=== PATIENT | female | born 1935 | race Caucasian/White ===

== ENCOUNTER 2016-10-14 22:31 | Inpatient (IN) | payer MEDICARE, BC ==
[~2016-10-14] VITALS: Ht 165.1 cm; Wt 89.4 kg
[~2016-10-14 22:31] MED LIST: ACYC800T PO; AMLO5TAB2 PO; AMOX-355 PO; ASP81TEC PO; ATRV10T PO; AZIT250T PO; AZTH250C PO; BNZ10T PO; CEFD300C3 PO; CEFU500T34 PO; CODE-54 PO; DLT180CCR PO; ESTR0.9T PO; FLC100T PO; FLEC100T PO; FLEC50TA2 PO; FURO20TA4 PO; FURO40TA4 PO; GLIM4TAB PO; HCT25T PO; HYDR-3812 PO; HYDR115S2 PO; INSU100V5 SQ; Insulin Human Lispro SC; KCL10CCR PO; LEVO125T PO; LISI40TA PO; LOSA100T7 PO; METO50TA7 PO; POTA10CA43 PO; WARF2TAB PO
--- OUTSIDE RECORDS SUMMARY | 2016-10-14 22:41 | XMS REPORT | Continuity of Care Document ---
Author Author [facility] Organization [facility] Address Unknown Phone Unavailable Care Team Providers Care Skiver Machine Name Role Phone Dpth, Azucena PCP [phone] Source Comments Some departments are not documenting in the electronic medical record. If you do not see the information that you expected, contact Release of Information in the Health Information Management department at [phone] for further assistance in locating additional records.[facility] Active Allergies and Adverse Reactions Allergen Noted Date Severity Reactions Comments Sulfa (Sulfonamide 12/13/2009 HIVES Antibiotics) Current Medications Prescription Sig. Disp. Refills Start End Date Status Date Levothyroxine 125 mcg Cap Take 125 mcg by mouth Active Daily. estrogens, conjugated Take 0.625 mg by mouth Active (PREMARIN) 0.625 mg PO daily. tablet hydrochlorothiazide Take 1 Tab by mouth 90 Cap 3 01/02/20 Active (HYDRODIURIL) 25 mg daily. 13 tablet flecainide (TAMBOCOR) 50 1 Tab twice daily. 180 Tab 3 01/02/20 Active mg tablet 13 amLODIPine (NORVASC) 5 mg Take 1 Tab by mouth 90 Tab 3 01/02/20 Active tablet daily. 13 metoprolol XL (TOPROL XL) Take 1 Tab by mouth as 135 Tab 3 01/08/20 Active 100 mg tablet directed. Take one tablet 13 by mouth every morning and 0.5 tablet by mouth each evening. warfarin (COUMADIN) 2 mg Take 1-2 Tabs by mouth 180 Tab 3 01/08/20 Active tablet daily. Or as directed. 13 furosemide (LASIX) 20 mg TAKE ONE-HALF (1/2) 45 Tab 1 10/29/19 Active tablet TABLET DAILY 14 atorvastatin (LIPITOR) 80 TAKE 1 TABLET DAILY 90 Tab 0 12/30/19 Active mg tablet 14 KLOR-CON 10 10 mEq tablet TAKE 1 TABLET DAILY 90 Tab 0 12/30/19 Active 14 Active Problems Problem Noted Date WOODWARD (dyspnea on exertion) 04/06/2011 Overview: Exertional fatigue and fatigue in general: We will check a TSH. We will obtain better control of her blood pressure. She will initiate an exercise program where she is exercises daily on a treadmill, and we discussed that as well. She will contact us if her blood pressure is not well controlled. I do not suspect that she is having recurrent intermittent paroxysmal atrial fibrillation causing her to be fatigued all the time. Of note, she was very active a year ago prior to her episode of AFib, bowling, mowing her own lawn, doing other significant activities with no symptoms, and now she has difficulty sometimes doing her housework. 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 If with better control of her blood pressure, the other changes described below, and exercise, she does not have significant improvement in a month (at which point I have asked her to follow up with our nurse practitioner, Ivanna Mathews), then Ivanna will have her undergo an exercise stress echo with Doppler and pre and post exercise PA pressure assessments. If they are significantly abnormal, then she will seek further pulmonary evaluation. However, she also may have some diastolic dysfunction and just controlling her blood pressure better and, if necessary, we may consider switching her hydrochlorothiazide to Lasix in the future, she may have improvement. She will keep in phone contact. It is possible that her metoprolol is causing her fatigue, although I think less likely. If the above evaluation and treatment do not improve her symptoms or yield a diagnosis or etiology of her symptoms, then we may consider tapering down her metoprolol and see if it improves her overall clinical status. --followed by water manager --AFIB stable Pulmonary hypertension (HCC) 01/01/2011 Overview: Elevated PAP on initial presentation-Pulmonary hypertension: 54/39mmHg on initial presentation a. Pulmonary angiogram 02-17. Question of RLL AV malformation or mass. b. CT angiogram to evaluate the above-pending? Echo 2009: Estimated Peak Systolic PA Pressure=22 mmHg + CVP. 01/13/2013 Exercise echo: Estimated Peak Systolic PA Pressure=46 mmHg HTN (hypertension), benign 05/25/2010 Overview: Cough on Lotensin, switched to Cozaar. Last Assessment & Plan: Her BP remains uncontrolled. We discussed a low sodium diet. I changed for HCTZ to Lasix 10mg bid. She will continue to monitor her blood pressures at home and increase her exercise as tolerated. I would like to see her when she returns for her stress text to reassess her HTN management. Fatigue 05/25/2010 Overview: 05/02/2010: will check TSH. Patient instructed to begin an exercise program. Last Assessment & Plan: Fatigue has improved with exercising. She did not have TSH drawn and this has been ordered today along with a BMP to follow up after changing NADEEN to ARB. An exercise echo examination has been ordered to assess her pre and post exercise PA pressures. CAD (coronary artery disease) 05/02/2010 Overview: Non-obstructive CAD-when presented with Chest pain w elevated tropinin - a. 02/17 Cardiac cath revealed mild disease of 20% LAD lesion. b. No clear WMA's noted. Normal LV Function b. EF 60% by cath 02/17. No clear WMA's noted.when presented with Chest pain w elevated tropinin - a. 02/17 Cardiac cath revealed mild disease of 20% LAD lesion. b. No clear WMA's noted 01/13/13 Exercise Echo: EF improves with stress LV function becomes nearly hyperdynamic LV volume decreases with stress. No regional wall motion abnormalities post exercise. Exercise echocardiogram negative for ischemia but submaximal HR with very poor exercise capacity limits sensitivity of exam. Last Assessment & Plan: Today she is denying symptoms that would indicate progression of her disease. Specifically she denies chest pain or shortness of breath with exertion. A-fib (HCC) 12/20/2009 Overview: Paroxsymal Afib--PAFIB-Sxic, currently persistent-06/21/09. --1st Dx'd 01-18--was aSxic, i.e. pt. unaware of AFIB--duration was unclear. --Cardioversion on 05-20 after 3 weeks Txic anticoag.--briefly successful, then with recurrent AFIB --Echo 02-17: EF 55-60%. Mild-mod MR & TR with probable elevated R heart pressures. LA size 4.7cm. --02/17Unable to perform JULIANA due to problems passing probe with conscious sedation. --RVR, Toprol increased 06-17-09 to 100mg am, 50mg in pm. --Unable to pass JULIANA probe with conscious sedation--pt. reportedly combative --EP Consultation 06/21/09--Txic INRs and AA Tx-if refractory then LAAA --RVR, Toprol increased 06-21-09 to 100mg BID--pt. did not do --12/19 JULIANA guided CVRT and AA Tx initiation with Flecainide and 200J-->NSR ? "Mild Stroke"-per families report--head CT without contrast 02/17-negative for acute CVA --Reportedly new O.D. lid lag, etc.--improved but not resolved. 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 BMI 33 Hypertension GERD. Prior Hyperthyroidism, treated with radiation Tx-on replacement Tx now Hyperlipidemia--on Lipitor Anticoagulation management GERD PRISCILA L ast Assessment & Plan: Assessment of heart rate as regular rhythm and normal rate. Social History Tobacco Use Types Packs/Day Years Used Date Never Smoker Alcohol Use Drinks/Week oz/Week Comments No Last Filed Vital Signs Vital Sign Reading Time Taken Blood Pressure 138/72 01/13/2013 10:45 AM CDT Pulse 60 01/01/2013 12:44 PM CDT Temperature 36.4 C (97.5 F) 12/13/2009 3:45 PM CDT Respiratory Rate - - Height 1.664 m (5' 5.5") 01/13/2013 10:45 AM CDT Weight 89.359 kg (197 lb) 01/13/2013 10:45 AM CDT Body Mass Index 32.27 01/13/2013 10:45 AM CDT Oxygen Saturation 96% 12/13/2009 3:45 PM CDT Plan of Care Health Maintenance Due Date Last Done Comments Physical (Comprehensive) 1944 Exam Pertussis Vaccine 1948 Tetanus Vaccine 1954 Breast Cancer Screening 1977 Shingles Vaccine 1997 Osteoporosis Screening 2002 Prevnar/Pneumovax (#1) 2002 Influenza Vaccine 04/12/2015 Results from Last 3 Months Not on file
--- NOTE | 2016-10-14 23:23 | ED General ---
General Chief Complaint: Respiratory Problems Stated Complaint: SOA WHIZZING Nursing Triage Note: Pt c/o SOA around 1700 tonight. Pt reports having cough x3 days Nursing Sepsis Screen: No Definite Risk Source of Information: Patient Exam Limitations: No Limitations History of Present Illness Time Seen by Provider: 23:13 Initial Comments Here with report of shortness of air tonight that started around 5 p.m. but she has been having cough, congestion and not feeling well for the last 3 days. She has been exposed to influenza but was on prophylactic Tamiflu. Was noted to be hypoxic arrival and responded well to oxygen. Also is markedly hypertensive. Patient presents with a fever. Denies nausea or vomiting but did have some diarrhea. States that she has been drinking okay but eating less today at least. States that she feels weak. Denies chest pain otherwise. Timing/Duration: 2-3 Days, Getting Worse Severity: Moderate Associated Systoms: No Chest Pain, Cough Fever/ChillsNo Nausea/Vomiting, Shortness of Air Weakness Allergies and Home Medications Allergies Coded Allergies: No Known Drug Allergies (Unverified , 06/05/15) Home Medications Aspirin 81 Mg Tabec #30 81 MG PO DAILY Prescribed by: CHEY POLK on 01/11/14 1010 Atorvastatin Calcium 10 Mg Tablet 80 MG PO DAILY (Reported) Azithromycin 250 Mg Tablet #4 250 MG PO DAILY Prescribed by: FRANCIS ALLEN on 07/16/16150 Cefdinir 300 Mg Capsule #20 300 MG PO BID Prescribed by: FRANCIS ALLEN on 07/16/16150 Estrogens,Conjugated 0.9 Mg Tablet 0.9 MG PO DAILY (Reported) Flecainide Acetate 100 Mg Tablet #180 (Reported) Furosemide 40 Mg Tablet #90 (Reported) Glimepiride 4 Mg Tablet #90 (Reported) Hydrocodone/Chlorphen P-Stirex 480 Ml Cristine.er.12h #120 5 ML PO Q12H PRN PRN cough Prescribed by: FRANCIS ALLEN on 07/16/16150 Insulin Detemir 1 Unit/0.01 Ml Soln #1 20 UNIT SQ DAILY Prescribed by: DIMITRI GAYTAN on 01/02/14 1038 Levothyroxine Sodium 125 Mcg Tablet 125 MCG PO DAILY (Reported) Lisinopril 40 Mg Tablet #90 (Reported) Losartan Potassium 100 Mg Tablet #30 100 MG PO DAILY (Reported) Metoprolol Succinate 50 Mg Tab #30 50 MG PO DAILY Prescribed by: CHEY POLK on 01/11/14 1010 Potassium Chloride 10 Meq Capsule.er #90 (Reported) Warfarin Sodium 2 Mg Tab #30 2 MG PO [id number]@18 Prescribed by: DIMITRI GAYTAN on 01/02/14 1038 Warfarin Sodium 2 Mg Tab #30 3 MG PO [id number]@18 Prescribed by: DIMITRI GAYTAN on 01/02/14 1038 Constitutional: see HPI chills fever malaise weakness EENTM: nose congestion see HPINo throat pain Respiratory: cough short of breath wheezing Cardiovascular: no symptoms reported Gastrointestinal: no symptoms reported diarrheaNo nausea, No vomiting Genitourinary: no symptoms reported Musculoskeletal: no symptoms reported Skin: no symptoms reported Psychiatric/Neurological: No Symptoms Reported All Other Systems Reviewed Negative Unless Noted: Yes Past Otrjszz-Gmckyz-Jdaeio Hx Patient Social History Alcohol Use: Denies Use Recreational Drug Use: No Smoking Status: Never a Smoker Recent Foreign Travel: No Contact w/Someone Who Travel: No Recent Infectious Disease Expo: No Recent Hopitalizations: No Seasonal Allergies Seasonal Allergies: No Surgeries HX Surgeries: Yes Surgeries: Appendectomy, Eye Surgery, Hysterectomy, Pacemaker, Tonsillectomy Respiratory Hx Respiratory Disorders: No Cardiovascular Hx Cardiac Disorders: Yes Cardiac Disorders: High Cholesterol, Hypertension Neurological Hx 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) Neurological Disorders: Stroke Reproductive System Hx Reproductive Disorders: No Sexually Transmitted Disease: No HIV/AIDS: No Female Reproductive Disorders: Endometriosis Genitourinary Hx Genitourinary Disorders: Yes (Frequency, Ugency) Gastrointestinal Hx Gastrointestinal Disorders: Yes Gastrointestinal Disorders: Gastroesophageal Reflux Musculoskeletal Hx Musculoskeletal Disorders: Yes Musculoskeletal Disorders: Osteoporosis, Arthritis Endocrine Hx Endocrine Disorders: Yes Endocrine Disorders: Hypothyroidsim, Diabetes, Non-Insulin dep HEENT HX ENT Disorders: Yes (bilateral cataract) HEENT Disorders: Cataract Loss of Vision: Denies Hearing Impairment: Deaf Cancer Hx Cancer: No Psychosocial Hx Psychiatric Problems: No Integumentary HX Skin/Integumentary Disorder: No Blood Transfusions Hx Blood Disorders: No Reviewed Nursing Assessment Reviewed/Agree w Nursing PMH: Yes Family Medical History Significant Family History: No Pertinent Family Hx Physical Exam-Suspected Sepsis Physical Exam Vital Signs Vital Sign - Last 12Hours 10/14/16 10/14/16 22:45 22:50 Temp 99.5 Pulse 65 Resp 18 Pulse Ox 87 O2 Delivery Room Air O2 Flow Rate 2 Capillary Refill : Less Than 3 Seconds General Appearance: No Apparent Distress WD/WN HEENT: PERRL/EOMI Pharynx Normal Neck: Non Tender Supple Respiratory: No Accessory Muscle Use Crackles (bilateral bases) Decreased Breath Sounds (right sided) Cardiovascular: Regular Rate, Rhythm No Murmur Gastrointestinal: Non Tender Soft Back: Normal Inspection No CVA Tenderness No Vertebral Tenderness Extremity: Non Tender No Calf Tenderness Neurologic/Psychiatric: Alert Oriented x3 Skin: normal color warm/dry Progress/Results/Core Measures Suspected Sepsis Recent Fever Within 48 Hours: No Infection Criteria Present: Suspected New Infection New/Unexplained Altered Menta: No Sepsis Screen: No Definite Risk Sepsis Diagnosis: SIRS Temperature:99.5 Pulse: 65 Respiratory Rate: 18 Laboratory Tests 10/14/16 23:32: White Blood Count 11.8H Blood Pressure / Mean: Laboratory Tests 10/14/16 23:32: Creatinine 0.77, INR Comment 3.3H, Platelet Count 210, Total Bilirubin 0.5 Results/Orders Lab Results Laboratory Tests Test 10/14/16 00:52 10/14/16 23:32 Range/Units Urine Bacteria MODERATE H /HPF Urine Bilirubin NEGATIVE NEGATIVE Urine Casts NONE /LPF Urine Clarity CLEAR Urine Color YELLOW Urine Crystals NONE /LPF Urine Culture Indicated YES Urine Glucose (UA) 4+ H NEGATIVE Urine Ketones 4+ H NEGATIVE Urine Leukocyte Esterase 2+ H NEGATIVE Urine Mucus NEGATIVE /LPF Urine Nitrite POSITIVE H NEGATIVE Urine Protein 2+ H NEGATIVE Urine RBC RARE /HPF Urine RBC (Auto) 3+ H NEGATIVE Urine Specific [place] 1.025 H 1.016-1.022 Urine Squamous Epithelial Cells RARE /HPF Urine Urobilinogen NORMAL NORMAL MG/DL Urine WBC 2-5 /HPF Urine pH 5 5-9 Activated Partial Thromboplast Time 47 H 24-35 SEC Alanine Aminotransferase (ALT/SGPT) 20 0-55 U/L Albumin 3.6 3.2-4.5 G/DL Alkaline Phosphatase 91 40-136 U/L Anion Gap 13 5-14 MMOL/L Anisocytosis SLIGHT Aspartate Amino Transf (AST/SGOT) 41 H 5-34 U/L BUN/Creatinine Ratio 18 Band Neutrophils 2 % Basophils # (Auto) 0.0 0.0-0.1 10^3/uL Basophils % (Manual) 0 % Basophils (%) (Auto) 0 0-10 % Blood Urea Nitrogen 14 7-18 MG/DL Calcium Level 8.8 8.5-10.1 MG/DL Carbon Dioxide Level 20 L 21-32 MMOL/L Chloride Level 101 98-107 MMOL/L Creatinine 0.77 0.60-1.30 MG/DL Eosinophils # (Auto) 0.6 H 0.0-0.3 10^3/uL Eosinophils % (Manual) 3 % Eosinophils (%) (Auto) 5 0-10 % Estimat Glomerular Filtration Rate > 60 Glucose Level 325 H 70-105 MG/DL Hematocrit 44 35-52 % Hemoglobin 14.6 11.5-16.0 G/DL INR Comment 3.3 H 0.8-1.4 Lactic Acid Level 1.26 0.50-2.00 MMOL/L Lymphocytes # (Auto) 0.6 L 1.0-4.0 X 10^3 Lymphocytes % (Manual) 1 % Lymphocytes (%) (Auto) 5 L 12-44 % Mean Corpuscular Hemoglobin 29 25-34 PG Mean Corpuscular Hemoglobin Concent 33 32-36 G/DL Mean Corpuscular Volume 88 80-99 FL Mean Platelet Volume 11.3 H 7.4-10.4 FL Monocytes # (Auto) 0.5 0.0-1.0 X 10^3 Monocytes % (Manual) 1 % Monocytes (%) (Auto) 4 0-12 % Neutrophils # (Auto) 10.1 H 1.8-7.8 X 10^3 Neutrophils % (Manual) 91 % Neutrophils (%) (Auto) 86 H 42-75 % Platelet Count 210 130-400 10^3/uL Potassium Level 4.3 3.6-5.0 MMOL/L Prothrombin Time 33.1 H 12.2-14.7 SEC Reactive Lymphocytes 2 % Red Blood Count 4.99 4.35-5.85 10^6/uL Red Cell Distribution Width 15.0 H 10.0-14.5 % Sodium Level 134 L 135-145 MMOL/L Total Bilirubin 0.5 0.1-1.0 MG/DL Total Protein 6.7 6.4-8.2 G/DL White Blood Count 11.8 H 4.3-11.0 10^3/uL Micro Results Microbiology 10/14/16 Influenza Types A,B Antigen (BREE) - Final, Complete My Orders Orders-ASHISH CORDERO MD O2 (10/14/16 22:49) Cbc With Automated Diff (10/14/16 23:17) Comprehensive Metabolic Panel (10/14/16:17) Lactic Acid Analyzer (10/14/16 23:17) Blood Culture (10/14/16 23:17) Sputum Culture (10/14/16 23:17) Ua Culture If Indicated (10/14/16:17) Protime With Inr (10/14/16:) Partial Thromboplastin Time (10/14/16 23:17) Chest 1 View, Ap/Pa Only (10/14/16 23:17) O2 (10/14/16:17) Saline Lock/Iv-Start (10/14/16:17) Saline Lock/Iv-Start (10/14/16:17) Vital Signs Adult Sepsis Patie Q1HR (10/14/16 23:17) Remove Rings In Anticipation O (10/14/16:17) Influenza A And B Antigens (10/14/16 23:17) Clonidine Tablet (Catapres Tablet) (10/14/16 23:30) Albuterol/Ipra Inhalation Soln (Duoneb I (10/14/16 23:30) Svn Sm Volume Nebulizer Rt-Rfs (10/14/16 23:23) Manual Differential (10/14/16 23:32) Hydralazine Injection (Apresoline Inject (10/15/16 00:30) Urine Culture (10/14/16 00:52) Medications Given in ED Current Medications Medications Dose Ordered Sig/Antonio Route Start Time Stop Time Status Last Admin Dose Admin Albuterol/ Ipratropium 3 ml ONCE ONCE INH 10/14/16 23:30 10/14/16 23:31 DC 10/14/16 23:33 3 ML Clonidine HCl 0.2 mg ONCE ONCE PO 10/14/16 23:30 10/14/16 23:31 DC 10/14/16 23:42 0.2 MG Vital Signs/I&O Vital Sign - Last 12Hours 10/14/16 10/14/16 10/14/16 22:45 22:50 23:33 Temp 99.5 Pulse 65 Resp 18 B/P Pulse Ox 87 87 94 O2 Delivery Room Air Nasal Cannula O2 Flow Rate 2 2 Capillary Refill : Less Than 3 Seconds Progress Note : Progress Note Seen and evaluated. IV, labs, UA, blood cultures and lactic acid, influenza screen, DuoNeb treatment and influenza screen ordered. Patient is hypertensive. Clonidine 0.2 mg by mouth ordered. Monitor patient. 0103: Discussed case with Dr. Ceballos. Patient's blood pressure is improved to 142/ 75. She does have right basilar pneumonia and still is requiring 2 L of oxygen with O2 sats improved to 95-96 percent after breathing treatment. Rocephin 1 g IV ordered. Patient to be admitted for treatment of pneumonia with hypoxia. Dr. Ceballos accepts patient for admission, inpatient status on-call for Dr. Johnson who is patient's primary care provider. Findings and concerns as discussed with patient and family who agree with plan. Diagnostic Imaging Diagonstic Imaging: Xray Plain Films/CT/US/NM/MRI: chest Comments Right basilar pneumonia Departure Communication Time/Spoke to Admitting Phy: 01:03 Impression Impression: Primary Impression: Right lower lobe pneumonia Qualified Code: J18.1 - Lobar pneumonia, unspecified organism Additional Impression: Hypoxia Disposition: ADMITTED INPATIENT Condition: Stable Decision to Admit Reason: Admit from ER (General) Decision to Admit/Date: Oct 15, 2016 Time/Decision to Admit Time: 01:03 Departure-Patient Inst. Referrals: GEORGIE JOHNSON DO (PCP/Family) Primary Care Physician ASHISH CORDERO MD Oct 14, 2016 23:23
[2016-10-14] MEDS ORDERED: cloNIDine 0.2 MG (CATAPRES) TAB PO ONE (23:30)
[2016-10-14] MEDS ORDERED: RT-ALBUTEROL/IPRATROPIUM 3 ML (DUONEB) VIAL INH ONE (23:30)
[2016-10-14 23:39] LABS: BASOPHILS % (AUTO) 0 % (0-10); EOSINOPHILS # (AUTO) 0.6 10^3/uL (0.0-0.3); EOSINOPHILS % (AUTO) 5 % (0-10); LYMPHOCYTES # (AUTO) 0.6 X 10^3 (1.0-4.0); LYMPHOCYTES % (AUTO) 5 % (12-44); MEAN CORPUSCULAR HEMOGLOBIN 29 PG (25-34); MEAN CORPUSCULAR HGB CONC 33 G/DL (32-36); MEAN CORPUSCULAR VOLUME 88 FL (80-99); MEAN PLATELET VOLUME 11.3 FL (7.4-10.4); MONOCYTES # (AUTO) 0.5 X 10^3 (0.0-1.0); MONOCYTES % (AUTO) 4 % (0-12); NEUTROPHILS # (AUTO) 10.1 X 10^3 (1.8-7.8); NEUTROPHILS % (AUTO) 86 % (42-75); PLATELET COUNT 210 10^3/uL (130-400); RED BLOOD COUNT 4.99 10^6/uL (4.35-5.85); WHITE BLOOD COUNT 11.8 10^3/uL (4.3-11.0)
[2016-10-14 23:49] LABS: INR 3.3 (0.8-1.4); PROTHROMBIN TIME PATIENT 33.1 SEC (12.2-14.7)
[2016-10-15] VITALS (7 sets, daily range): BP systolic 148–210; BP diastolic 65–90
[2016-10-15 00:02] LABS: ANISOCYTOSIS SLIGHT; BAND NEUTROPHILS 2 %; BASOPHILS % (MANUAL) 0 %; EOSINOPHILS % (MANUAL) 3 %; LYMPHOCYTES % (MANUAL) 1 %; NEUTROPHILS % (MANUAL) 91 %; REACTIVE LYMPHOCYTES 2 %
[2016-10-15 00:06] LABS: ALANINE AMINOTRANSFERASE 20 U/L (0-55); ALBUMIN 3.6 G/DL (3.2-4.5); ANION GAP 13 MMOL/L (5-14); ASPARTATE AMINO TRANSFERASE 41 U/L (5-34); BILIRUBIN,TOTAL 0.5 MG/DL (0.1-1.0); BLOOD UREA NITROGEN 14 MG/DL (7-18); BUN/CREATININE RATIO 18; CALCIUM 8.8 MG/DL (8.5-10.1); CARBON DIOXIDE 20 MMOL/L (21-32); CHLORIDE 101 MMOL/L (98-107); CREATININE SERUM 0.77 MG/DL (0.60-1.30); GFR ESTIMATED > 60; GLUCOSE 325 MG/DL (70-105); POTASSIUM 4.3 MMOL/L (3.6-5.0); SODIUM 134 MMOL/L (135-145); TOTAL PROTEIN 6.7 G/DL (6.4-8.2)
[2016-10-15] MEDS ORDERED: hydrALAZINE (APESOLINE) 20 MG/ML VIAL IV ONE (00:30)
[2016-10-15 00:59] LABS: BILIRUBIN,URINE NEGATIVE (NEGATIVE); KETONES,URINE 4+ (NEGATIVE); LEUKOCYTE ESTERASE ,URINE 2+ (NEGATIVE); NITRITE,URINE POSITIVE (NEGATIVE); PH,URINE 5 (5-9); PROTEIN,URINE 2+ (NEGATIVE); UROBILINOGEN,URINE NORMAL (NORMAL)
[2016-10-15 01:08] LABS: SQUAMOUS EPITHELIAL CELL,UR RARE /HPF
[2016-10-15] MEDS ORDERED: cefTRIAXone INJECTION 1,000 MG in NS (IVPB) 50 ML IV ONE (01:15)
[2016-10-15] MEDS ORDERED: NS IV 1000 ML 1,000 ML ONE (02:08)
[2016-10-15] MEDS ORDERED: SODIUM CHLORIDE (ADD-VANTAGE) 250 ML ONE (02:10)
[2016-10-15] MEDS ORDERED: AZITHROMYCIN IV ADD-VANTAGE 500 MG IV ONE (02:10)
[2016-10-15] MEDS: NS IV 1000 ML 1,000 ML IV SCH (02:10)
[2016-10-15] MEDS ORDERED: CATHETER FLUSH 10 ML SYR IV PRN (04:30)
[2016-10-15] MEDS: ACETAMINOPHEN 500 MG TAB (TYLENOL) PO PRN (04:33)
[2016-10-15] MEDS: CATHETER FLUSH 10 ML SYR IV SCH ×3 (06:00→21:09)
[2016-10-15] MEDS ORDERED: inSUlin (REGULAR) HUMAN 1 UNIT/0.01 ML (CHARGE PER UNIT) SC SCH (06:00)
[2016-10-15] MEDS: inSUlin (REGULAR) HUMAN 1 UNIT/0.01 ML (CHARGE PER UNIT) SC SCH ×4 (06:08→21:09)
[2016-10-15 06:46] LABS: BASOPHILS % (AUTO) 0 % (0-10); EOSINOPHILS # (AUTO) 0.3 10^3/uL (0.0-0.3); EOSINOPHILS % (AUTO) 4 % (0-10); LYMPHOCYTES # (AUTO) 0.6 X 10^3 (1.0-4.0); LYMPHOCYTES % (AUTO) 7 % (12-44); MEAN CORPUSCULAR HEMOGLOBIN 29 PG (25-34); MEAN CORPUSCULAR HGB CONC 32 G/DL (32-36); MEAN CORPUSCULAR VOLUME 89 FL (80-99); MEAN PLATELET VOLUME 11.5 FL (7.4-10.4); MONOCYTES # (AUTO) 0.4 X 10^3 (0.0-1.0); MONOCYTES % (AUTO) 5 % (0-12); NEUTROPHILS % (AUTO) 84 % (42-75); PLATELET COUNT 202 10^3/uL (130-400); RED BLOOD COUNT 4.63 10^6/uL (4.35-5.85); RED CELL DISTRIBUTION WIDTH 14.9 % (10.0-14.5); WHITE BLOOD COUNT 8.3 10^3/uL (4.3-11.0)
[2016-10-15 07:04] LABS: ALANINE AMINOTRANSFERASE 18 U/L (0-55); ALBUMIN 3.3 G/DL (3.2-4.5); ANION GAP 12 MMOL/L (5-14); ASPARTATE AMINO TRANSFERASE 34 U/L (5-34); BILIRUBIN,TOTAL 0.4 MG/DL (0.1-1.0); BLOOD UREA NITROGEN 12 MG/DL (7-18); BUN/CREATININE RATIO 17; CALCIUM 8.4 MG/DL (8.5-10.1); CARBON DIOXIDE 21 MMOL/L (21-32); CHLORIDE 101 MMOL/L (98-107); CREATININE SERUM 0.72 MG/DL (0.60-1.30); GFR ESTIMATED > 60; GLUCOSE 303 MG/DL (70-105); POTASSIUM 4.1 MMOL/L (3.6-5.0); SODIUM 134 MMOL/L (135-145); TOTAL PROTEIN 6.1 G/DL (6.4-8.2)
[2016-10-15] MEDS: RT-ALBUTEROL SULF 2.5 MG/3 ML PRE-MIX VIAL INH PRN ×3 (08:19→17:38)
--- NOTE | 2016-10-15 08:20 | Diagnostic Imaging Report ---
INDICATION: Cough, congestion. FINDINGS: Heart size is upper limits slightly increased. Vascular congestion has increased. There is some perihilar edema. No effusion. Calcified nodule in the right lower lobe stable chronic and benign. IMPRESSION: Increased heart size, vascular congestion and probable mild perihilar edema. Dictated by: Dictated on workstation # [id number]
[2016-10-15] MEDS ORDERED: lisINopril 20 MG (ZESTRIL) TAB PO SCH (09:00)
[2016-10-15] MEDS ORDERED: meTOprolol SUCCINATE 100 MG (TOPROL XL) TAB PO SCH (09:00)
[2016-10-15] MEDS ORDERED: FLECAINIDE 100 MG (TAMBOCOR) TAB PO SCH (09:00)
[2016-10-15] MEDS ORDERED: ATOR80TA76 PO (09:37)
[2016-10-15] MEDS ORDERED: NF-MET200T PO (09:37)
[2016-10-15] MEDS ORDERED: MAGN400T6 PO (09:37)
[2016-10-15] MEDS ORDERED: WARF-47 PO ×2 (09:37)
[2016-10-15] MEDS ORDERED: ESTR0.62 PO (09:37)
[2016-10-15] MEDS ORDERED: LEVO175T5 PO (09:37)
[2016-10-15] MEDS ORDERED: INSU100I29 SQ (09:37)
[2016-10-15] MEDS ORDERED: ASPI-983 PO (09:37)
[2016-10-15] MEDS: AZITHROMYCIN 250 MG TAB (ZITHROMAX) PO SCH (09:39)
[2016-10-15] MEDS ORDERED: warFARin 3 MG (COUMADIN) TAB PO SCH (17:00)
[2016-10-15] MEDS ORDERED: amLODIPine 5 MG (NORVASC) TAB PO NR (17:15)
[2016-10-15] MEDS ORDERED: cloNIDine 0.1 MG (CATAPRES) TAB PO NR (17:15)
[2016-10-15] MEDS ORDERED: FUROSEMIDE 40 MG/4 ML INJ (LASIX) ONE (17:42)
[2016-10-15] MEDS ORDERED: methylPREDNISolone 125 MG (Solu-MEDROL) VIAL ONE (17:42)
[2016-10-15] MEDS ORDERED: FUROSEMIDE 40 MG/4 ML INJ (LASIX) IVP NR (17:45)
[2016-10-15] MEDS ORDERED: methylPREDNISolone 40 MG/ML (Solu-MEDROL) VIAL IV NR (17:45)
[2016-10-15] MEDS: RT-ALBUTEROL SULF 2.5 MG/3 ML PRE-MIX VIAL INH SCH ×2 (18:00→22:50)
--- NOTE | 2016-10-15 19:25 | History & Physicial ---
History of Present Illness History of Present Illness Reason for visit/HPI This is a 81 year old female who presented to the emergency room with a 3 day history of cough and congestion. She became more short of air so she presented to the emergency room. She was found to be hypoxic with an oxygen saturation of 87%. She was also found to be hypertensive. Her CXR showed a pulmonary vascular congestion and possible right lower lobe pneumonia. It was decided to admit her for antibiotics, oxygen, nebulizer treatments and further evaluation. Date of Admission Oct 15, 2016 at 1:27 am I consulted on this patient on 10/15/16 19:19 Attending Physician Zhanna Johnson DO Admitting Physician Zhanna Johnson DO Consult Allergies and Home Medications Allergies Coded Allergies: No Known Drug Allergies (Unverified , 06/05/15) Home Medications Aspirin 81 Mg Tablet.dr 81 MG PO DAILY (Reported) Atorvastatin Calcium 80 Mg Tablet 80 MG PO HS (Reported) Estrogens, Conjugated 0.625 Mg Tablet 0.625 MG PO DAILY (Reported) Flecainide Acetate 100 Mg Tablet 100 MG PO BID (Reported) Furosemide 40 Mg Tablet 40 MG PO DAILY (Reported) Glimepiride 4 Mg Tablet 4 MG PO DAILY (Reported) Insulin Detemir 100 Unit/1 Ml Insuln.pen 35 UNITS SQ BID (Reported) Levothyroxine Sodium 175 Mcg Tablet 175 MCG PO DAILY (Reported) Lisinopril 40 Mg Tablet 40 MG PO DAILY (Reported) Magnesium Oxide 400 Mg Tablet 400 MG PO DAILY (Reported) Metoprolol Succinate 200 Mg Tab 200 MG PO DAILY (Reported) Potassium Chloride 10 Meq Capsule.er 10 MEQ PO DAILY (Reported) Warfarin Sodium 2 Mg Tablet 2 MG PO TuThSa (Reported) Warfarin Sodium 2 Mg Tablet 3 MG PO SuMoWeFr (Reported) TAKES 1 & 1/2 OF A (2 MG) TABLET Past Lyhcvkh-Hizviw-Xvubga Hx Patient Social History Alcohol Use: Denies Use Recreational Drug Use: No Smoking Status: Never a Smoker Physical Abuse Screen: No Sexual Abuse: No Recent Foreign Travel: No Contact w/other who traveled: No Recent Hopitalizations: No Recent Infectious Disease Expo: No Immunizations Up To Date Date of Influenza Vaccine: May 17, 2016 Seasonal Allergies Seasonal Allergies: No Surgeries HX Surgeries: Yes Surgeries: Appendectomy, Eye Surgery, Hysterectomy, Pacemaker, Tonsillectomy Respiratory Hx Respiratory Disorders: No Cardiovascular Hx Cardiovascular Disorders: Yes Cardiac Disorders: High Cholesterol, Hypertension Neurological Hx 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) Neurological Disorders: Stroke Reproductive System Hx Reproductive Disorders: No Sexually Transmitted Disease: No HIV/AIDS: No Female Reproductive Disorders: Endometriosis Genitourinary Hx Genitourinary Disorders: Yes (Frequency, Ugency) Gastrointestinal Hx Gastrointestinal Disorders: Yes Gastrointestinal Disorders: Gastroesophageal Reflux Musculoskeletal Hx Musculoskeletal Disorders: Yes Musculoskeletal Disorders: Osteoporosis, Arthritis Endocrine Hx Endocrine Disorders: Yes Endocrine Disorders: Hypothyroidsim, Diabetes, Non-Insulin dep HEENT HX ENT Disorders: Yes (bilateral cataract) HEENT Disorders: Cataract Loss of Vision: Denies Hearing Impairment: Deaf Cancer Hx Cancer: No Psychosocial Hx Psychiatric Problems: No Integumentary HX Skin/Integumentary Disorder: No Blood Transfusions Hx Blood Disorders: No Reviewed Nursing Assessment Reviewed/Agree w Nursing PMH: Yes Family Medical History Significant Family History: No Pertinent Family Hx Family Hx: Constitutional: weakness EENTM: No blurred vision, No dental problems, No double vision, No ear discharge, No ear pain, No epistaxis, No eye pain, No hearing loss, No hoarseness, No mouth pain, No mouth swelling, No no symptoms reported, No nose congestion, No nose pain, No other, No see HPI, No tearing, No throat pain, No throat swelling, No vision loss Respiratory: cough short of breath Cardiovascular: No no symptoms reported, No see HPI, No chest pain, No edema, No Hx of Intervention, No palpitations, No syncope, No vascular heart diseas, No other Gastrointestinal: No RUQ, No LUQ, No RLQ, No LLQ, No no symptoms reported, No see HPI, No abdominal pain, No constipation, No diarrhea, No dysphagia, No hematemesis, No heartburn, No jaundice, No loss of appetite, No melena, No nausea, No vomiting, No other Genitourinary: No no symptoms reported, No see HPI, No decreased output, No discharge, No dysuria, No frequency, No hematuria, No hesitancy, No incontinence , No nocturia, No pain, No other Musculoskeletal: No no symptoms reported, No see HPI, No back pain, No gout, No joint pain, No joint swelling, No muscle pain, No muscle stiffness, No muscle cramps, No muscle twitching, No muscle weakness, No neck pain, No other Skin: No no symptoms reported, No see HPI, No change in color, No change in hair/nails, No dryness, No hx of skin cancer, No lesions, No lumps, No pruritus , No rash, No other Psychiatric/Neurological: Weakness Physical Exam Vital Signs Vital Sign - Last 12Hours 10/14/16 10/14/16 22:45 22:50 Temp 99.5 Pulse 65 Resp 28 Pulse Ox 87 O2 Delivery Room Air O2 Flow Rate 2 Capillary Refill : Less Than 3 Seconds General Appearance: No Apparent Distress HEENT: Normal ENT Inspection Neck: Supple Respiratory: Crackles Decreased Breath Sounds Cardiovascular: Regular Rate, Rhythm Systolic Murmur Gallop/S4 Gastrointestinal: Normal Bowel Sounds Non Tender Soft Rectal: Deferred Back: No CVA Tenderness Extremity: Non Tender No Calf Tenderness No Pedal Edema Neurologic/Psychiatric: Alert Oriented x3 Skin: Normal Color Warm/Dry Lymphatic: No Adenopathy Comments Laboratory Tests 10/14/16 23:32: Activated Partial Thromboplast Time 47H, Alanine Aminotransferase (ALT/SGPT) 20 , Albumin 3.6, Alkaline Phosphatase 91, Anion Gap 13, Anisocytosis SLIGHT, Aspartate Amino Transf (AST/SGOT) 41H, BUN/Creatinine Ratio 18, Band Neutrophils 2, Basophils # (Auto) 0.0, Basophils % (Manual) 0, Basophils (%) ( Auto) 0, Blood Urea Nitrogen 14, Calcium Level 8.8, Carbon Dioxide Level 20L, Chloride Level 101, Creatinine 0.77, Eosinophils # (Auto) 0.6H, Eosinophils % ( Manual) 3, Eosinophils (%) (Auto) 5, Estimat Glomerular Filtration Rate > 60, Glucose Level 325H, Hematocrit 44, Hemoglobin 14.6, INR Comment 3.3H, Lactic Acid Level 1.26, Lymphocytes # (Auto) 0.6L, Lymphocytes % (Manual) 1, Lymphocytes (%) (Auto) 5L, Mean Corpuscular Hemoglobin 29, Mean Corpuscular Hemoglobin Concent 33, Mean Corpuscular Volume 88, Mean Platelet Volume 11.3H, Monocytes # (Auto) 0.5, Monocytes % (Manual) 1, Monocytes (%) (Auto) 4, Neutrophils # (Auto) 10.1H, Neutrophils % (Manual) 91, Neutrophils (%) (Auto) 86H, Platelet Count 210, Potassium Level 4.3, Prothrombin Time 33.1H, Reactive Lymphocytes 2, Red Blood Count 4.99, Red Cell Distribution Width 15.0H, Sodium Level 134L, Total Bilirubin 0.5, Total Protein 6.7, White Blood Count 11.8H 10/15/16 05:26: Glucometer 276H 10/15/16 06:08: Alanine Aminotransferase (ALT/SGPT) 18, Albumin 3.3, Alkaline Phosphatase 80, Anion Gap 12, Aspartate Amino Transf (AST/SGOT) 34, BUN/Creatinine Ratio 17, Basophils # (Auto) 0.0, Basophils (%) (Auto) 0, Blood Urea Nitrogen 12, Calcium Level 8.4L, Carbon Dioxide Level 21, Chloride Level 101, Creatinine 0.72, Eosinophils # (Auto) 0.3, Eosinophils (%) (Auto) 4, Estimat Glomerular Filtration Rate > 60, Glucose Level 303H, Hematocrit 41, Hemoglobin 13.3, Lymphocytes # (Auto) 0.6L, Lymphocytes (%) (Auto) 7L, Mean Corpuscular Hemoglobin 29, Mean Corpuscular Hemoglobin Concent 32, Mean Corpuscular Volume 89, Mean Platelet Volume 11.5H, Monocytes # (Auto) 0.4, Monocytes (%) (Auto) 5, Neutrophils # (Auto) 7.0, Neutrophils (%) (Auto) 84H, Platelet Count 202, Potassium Level 4.1, Red Blood Count 4.63, Red Cell Distribution Width 14.9H, Sodium Level 134L, Total Bilirubin 0.4, Total Protein 6.1L, White Blood Count 8.3 10/15/16 10:15: Glucometer 286H 10/15/16 14:47: Glucometer 221H Microbiology 10/14/16 Blood Culture - Preliminary, Resulted No growth 10/14/16 Influenza Types A,B Antigen (BREE) - Final, Complete 10/14/16 Urine Culture - Preliminary, Resulted Escherichia Coli Assessment/Plan Assessment and Plan 1. Acute Hypoxia--admit on oxygen 2. Pulmonary Vascular Congestion--start lasix and check BNP, 2-D ECHO 3. Possible RLL infiltrate vs nodule--on abx but will check CT of chest 4. Hypertensive Urgency--restart home meds and monitor 5. Diabetes mellitus--resume home insulin dose plus SSI Clinical Quality Measures DVT/VTE Risk/Contraindication: Risk Factor Score Per Nursin RFS Level Per Nursing on Admit: 4+=Very High ZHANNA JOHNSON DO Oct 15, 2016 7:24 pm
[2016-10-15] MEDS: cefTRIAXone 1 GM/NS 50 ML IVPB IV SCH ×2 (21:08)
[2016-10-15] MEDS: inSUlin DETERMIR 1 UNIT/0.01 ML (LEVEMIR) CHARGE PER UNIT SQ SCH (21:09)
[2016-10-15] MEDS: ATORVASTATIN 80 MG (LIPITOR) TABLET PO SCH (21:09)
[2016-10-15] MEDS: FLECAINIDE 100 MG (TAMBOCOR) TAB PO SCH (21:09)
[2016-10-16 00:42] VITALS: BP 138/63
[2016-10-16] MEDS: RT-ALBUTEROL SULF 2.5 MG/3 ML PRE-MIX VIAL INH SCH ×6 (02:23→22:08)
[2016-10-16 04:00] VITALS: BP 103/52
[2016-10-16] MEDS: NS IV 1000 ML 1,000 ML IV SCH (04:30)
[2016-10-16 06:14] LABS: BASOPHILS % (AUTO) 0 % (0-10); EOSINOPHILS % (AUTO) 0 % (0-10); LYMPHOCYTES # (AUTO) 0.6 X 10^3 (1.0-4.0); LYMPHOCYTES % (AUTO) 9 % (12-44); MEAN CORPUSCULAR HEMOGLOBIN 29 PG (25-34); MEAN CORPUSCULAR HGB CONC 33 G/DL (32-36); MEAN CORPUSCULAR VOLUME 88 FL (80-99); MEAN PLATELET VOLUME 11.2 FL (7.4-10.4); MONOCYTES # (AUTO) 0.3 X 10^3 (0.0-1.0); MONOCYTES % (AUTO) 5 % (0-12); NEUTROPHILS # (AUTO) 5.9 X 10^3 (1.8-7.8); NEUTROPHILS % (AUTO) 86 % (42-75); PLATELET COUNT 211 10^3/uL (130-400); RED BLOOD COUNT 4.62 10^6/uL (4.35-5.85); WHITE BLOOD COUNT 6.8 10^3/uL (4.3-11.0)
[2016-10-16] MEDS: CATHETER FLUSH 10 ML SYR IV SCH ×3 (06:16→21:14)
[2016-10-16] MEDS: MAGNESIUM OXIDE (MAG-OX)400 MG TAB PO SCH (06:16)
[2016-10-16] MEDS: inSUlin (REGULAR) HUMAN 1 UNIT/0.01 ML (CHARGE PER UNIT) SC SCH ×4 (06:16→21:14)
[2016-10-16] MEDS: LEVOTHYROXINE 75 MCG (LEVOTHROID) TABLET PO SCH (06:17)
[2016-10-16] MEDS: LEVOTHYROXINE 100 MCG (LEVOTHROID) TAB PO SCH (06:17)
[2016-10-16] MEDS: FUROSEMIDE 40 MG (LASIX) TAB PO SCH ×2 (06:17→18:43)
[2016-10-16] MEDS: KCL 20 MEQ TAB (K-DUR) PO SCH (06:17)
[2016-10-16 06:51] LABS: ALBUMIN 3.3 G/DL (3.2-4.5); BILIRUBIN,TOTAL 0.4 MG/DL (0.1-1.0); CALCIUM 8.7 MG/DL (8.5-10.1); CREATININE SERUM 0.98 MG/DL (0.60-1.30); POTASSIUM 3.9 MMOL/L (3.6-5.0); TOTAL PROTEIN 6.4 G/DL (6.4-8.2)
[2016-10-16 08:00] VITALS: BP 136/76
[2016-10-16] MEDS ORDERED: FUROSEMIDE 40 MG (LASIX) TAB PO SCH (09:00)
[2016-10-16] MEDS: AZITHROMYCIN 250 MG TAB (ZITHROMAX) PO SCH (09:39)
[2016-10-16] MEDS: meTOprolol SUCCINATE 100 MG (TOPROL XL) TAB PO SCH (09:39)
[2016-10-16] MEDS: ESTROGENS CONJ 0.625 MG (PREMARIN) TAB PO SCH (09:39)
[2016-10-16] MEDS: FLECAINIDE 100 MG (TAMBOCOR) TAB PO SCH ×2 (09:39→21:13)
[2016-10-16] MEDS: ASPIRIN E.C. 81 MG (ECOTRIN) TAB PO SCH (09:39)
[2016-10-16] MEDS: lisINopril 20 MG (ZESTRIL) TAB PO SCH (09:39)
[2016-10-16] MEDS: inSUlin DETERMIR 1 UNIT/0.01 ML (LEVEMIR) CHARGE PER UNIT SQ SCH ×2 (09:40→21:14)
[2016-10-16 12:00] VITALS: BP 110/54
--- NOTE | 2016-10-16 13:54 | Diagnostic Imaging Report ---
PROCEDURE: CT chest without contrast. TECHNIQUE: Multiple contiguous axial images were obtained through the chest without the use of intravenous contrast. INDICATION: Pulmonary nodule. CORRELATION STUDY: Chest radiograph of 10/14/2016. FINDINGS: A left-sided multichamber pacemaker is present. The heart size is at the upper limits of normal. No significant pericardial fluid collection. There are calcified right subcarinal and hilar lymph nodes present. There are mildly prominent mediastinal lymph nodes present on unenhanced imaging. The largest measures approximately 13 x 10 mm. The thoracic aortic contour is unremarkable. The lung soriano do demonstrate minimal groundglass type opacities, disproportionate and greater involving the right lung field throughout all lobes. No tracey lobar consolidation. There is a densely calcified granuloma about the right lower lobe. There is a small 3 mm noncalcified granuloma in the right lower lobe just adjacent to the fissure plane. No significant pleural effusions. The visualized portions of the upper abdomen demonstrate multiple irregular marginally lobulated low densities along the peripheral margins of the liver. The largest involves the lateral aspect of the right lobe of the liver but also involves the left lobe. Granulomas are noted within the spleen. IMPRESSION: 1. No currently concerning nodule within either lung. There is an incidental calcified granuloma of the right lower lobe with additional calcified right hilar and subcarinal lymph nodes owing to prior granulomatous disease. 2. Groundglass opacities of the particularly right lung may reflect nonspecific edema or an inflammatory/infectious process. 3. There are peripheral geographic low-density lesions within the liver. The findings are nonspecific. This is perhaps an atypical type of vascular perfusion. Additionally, correlation with either ultrasound imaging or post contrast enhanced CT imaging of the abdomen would be recommended. Dictated by: Dictated on workstation # [id number]
[2016-10-16 15:24] LABS: INR 3.1 (0.8-1.4)
[2016-10-16 15:30] VITALS: BP 160/72
[2016-10-16] MEDS ORDERED: warFARin 2 MG (COUMADIN) TAB PO SCH (17:00)
[2016-10-16] MEDS ORDERED: KCL 10 MEQ TAB (MICRO K) PO SCH (17:20)
[2016-10-16] MEDS ORDERED: RT-ALBUTEROL SULF 2.5 MG/3 ML PRE-MIX VIAL INH PRN (18:00)
[2016-10-16 19:00] VITALS: BP 131/58
[2016-10-16] MEDS: ATORVASTATIN 80 MG (LIPITOR) TABLET PO SCH (21:13)
[2016-10-16] MEDS: cefTRIAXone 1 GM/NS 50 ML IVPB IV SCH ×2 (21:14)
--- NOTE | 2016-10-16 21:41 | Progress Note (SOAP) ---
Subjective Subjective/Events-last exam Fwup hypoxia, pneumonia, pulmonary vascular congestion, HTN, diabetes mellitus. Feeling better but had episode of shortness of air last night that responded to IV lasix and IV steroids. Objective Exam Vital Signs Date Time Temp Pulse Resp B/P Pulse Ox O2 Delivery O2 Flow Rate FiO2 10/16/16 19:00 97.6 66 22 131/58 92 Nasal Cannula 2.50 10/16/16 18:38 93 2.00 10/16/16 15:47 98.0 10/16/16 15:30 97.1 64 18 160/72 95 Nasal Cannula 2.50 10/16/16 14:08 93 2.00 10/16/16 12:00 98.0 63 20 110/54 96 Nasal Cannula 2.50 10/16/16 09:58 96 2.00 10/16/16 08:00 97.4 66 20 136/76 95 Nasal Cannula 2.50 10/16/16 08:00 Nasal Cannula 4.00 10/16/16 06:10 94 2.00 10/16/16 04:00 96.8 60 20 103/52 95 Nasal Cannula 2.50 10/16/16 02:23 97 2.00 10/16/16 00:42 97.2 64 20 138/63 95 Nasal Cannula 3.00 10/15/16 22:50 2.00 I & O 10/16/16 07:00 Intake Total 1790 ml Output Total 1925 ml Balance -135 ml Capillary Refill : Less Than 3 Seconds General Appearance: No Apparent Distress Neck: Supple Respiratory: Crackles Decreased Breath Sounds Cardiovascular: Regular Rate, Rhythm Systolic Murmur Extremity: Non Tender No Calf Tenderness No Pedal Edema Neurologic/Psychiatric: Alert Oriented x3 Results Lab Laboratory Tests 10/16/16 05:48: Alanine Aminotransferase (ALT/SGPT) 18, Albumin 3.3, Alkaline Phosphatase 70, Anion Gap 14, Aspartate Amino Transf (AST/SGOT) 30, BUN/Creatinine Ratio 16, Basophils # (Auto) 0.0, Basophils (%) (Auto) 0, Blood Urea Nitrogen 16, Calcium Level 8.7, Carbon Dioxide Level 22, Chloride Level 97L, Creatinine 0.98, Eosinophils # (Auto) 0.0, Eosinophils (%) (Auto) 0, Estimat Glomerular Filtration Rate 55, Glucose Level 421*H, Hematocrit 41, Hemoglobin 13.4, Lymphocytes # (Auto) 0.6L, Lymphocytes (%) (Auto) 9L, Mean Corpuscular Hemoglobin 29, Mean Corpuscular Hemoglobin Concent 33, Mean Corpuscular Volume 88, Mean Platelet Volume 11.2H, Monocytes # (Auto) 0.3, Monocytes (%) (Auto) 5, Neutrophils # (Auto) 5.9, Neutrophils (%) (Auto) 86H, Platelet Count 211, Potassium Level 3.9, Red Blood Count 4.62, Red Cell Distribution Width 15.0H, Sodium Level 133L, Total Bilirubin 0.4, Total Protein 6.4, White Blood Count 6.8 10/16/16 06:09: Glucometer 386H 10/16/16 10:16: Glucometer 309H 10/16/16 13:55: B-Type Natriuretic Peptide 187.0H 10/16/16 15:10: INR Comment 3.1H, Prothrombin Time 32.0H 10/16/16 20:29: Glucometer 168H Microbiology 10/14/16 Blood Culture - Preliminary, Resulted No growth 10/14/16 Influenza Types A,B Antigen (BREE) - Final, Complete 10/14/16 Urine Culture - Final, Complete Escherichia Coli Assessment/Plan Assessment/Plan Assess & Plan/Chief Complaint 1. Acute Hypoxia--Continue oxygen 2. Acute Pneumonia--continue IV abx and check CT scan of chest 3. Acute Pulmonary Vascular Congestion--po lasix dose increased, check 2-D ECHO 4. Hypertension--improving 5. Diabetes mellitus--back on levemir with SSI Clinical Quality Measures DVT/VTE Risk/Contraindication: Risk Factor Score Per Nursin RFS Level Per Nursing on Admit: 4+=Very High GEORGIE GONZALES DO Oct 16, 2016 9:41 pm
[2016-10-17] VITALS: BP 127/62
[2016-10-17] MEDS: RT-ALBUTEROL SULF 2.5 MG/3 ML PRE-MIX VIAL INH SCH ×6 (02:15→22:39)
[2016-10-17] MEDS: NS IV 1000 ML 1,000 ML IV SCH (02:35)
[2016-10-17] MEDS: ACETAMINOPHEN 500 MG TAB (TYLENOL) PO PRN (02:37)
[2016-10-17] MEDS: CATHETER FLUSH 10 ML SYR IV SCH ×3 (05:36→20:36)
[2016-10-17] MEDS: FUROSEMIDE 40 MG (LASIX) TAB PO SCH ×2 (05:36→18:07)
[2016-10-17] MEDS: MAGNESIUM OXIDE (MAG-OX)400 MG TAB PO SCH (05:36)
[2016-10-17] MEDS: LEVOTHYROXINE 75 MCG (LEVOTHROID) TABLET PO SCH (05:36)
[2016-10-17] MEDS: KCL 20 MEQ TAB (K-DUR) PO SCH (05:36)
[2016-10-17] MEDS: LEVOTHYROXINE 100 MCG (LEVOTHROID) TAB PO SCH (05:36)
[2016-10-17] MEDS: inSUlin (REGULAR) HUMAN 1 UNIT/0.01 ML (CHARGE PER UNIT) SC SCH ×4 (05:37→20:36)
[2016-10-17 06:32] LABS: INR 2.7 (0.8-1.4); PROTHROMBIN TIME PATIENT 28.6 SEC (12.2-14.7)
[2016-10-17 08:00] VITALS: BP 121/60
--- NOTE | 2016-10-17 08:32 | ECHOCARDIOGRAPHY REPORT ---
PROCEDURE PHYSICIAN: MERY TALAVERA DATE OF PROCEDURE: 10/16/2016 TWO DIMENSIONAL ECHOCARDIOGRAM REPORT PRIMARY PHYSICIAN: Dr. Johnson OTHER PHYSICIAN: REFERRING PHYSICIAN: ORDERING PHYSICIAN: Dr. Johnson INDICATION FOR THE PROCEDURE: Right sided pneumonia. MEASUREMENTS DERIVED VALUES LV DIAMETER (LAX) NORMALS NORMALS Diastolic 4.4 (3.6-5.2) Eject. Fract. (60%+/-6%) Systolic (2.3-3.9) Diastolic Vol. % Shortening (0.22-0.42) Systolic Vol. Aortic Root 3.1 IVS THICKNESS Diastolic 1.1 (0.6-1.1) LVPW THICKNESS Diastolic 1.1 (0.6-1.1) LA DIAMETER Systolic 4.1 (2.1-3.7) DESCRIPTION: Two-dimensional echocardiography shows normal global left ventricular systolic function with normal regional wall motion. Aortic, mitral and tricuspid valve leaflets show good leaflet excursion. There is no significant pericardial effusion. There is mild mitral annular calcification. There is mild aortic valve sclerosis. Doppler imaging shows trivial to mild mitral and tricuspid regurgitation. There is no Doppler evidence of significant valvular stenosis. Pulmonary artery systolic pressure is estimated to be approximately 35 mmHg. Good subcostal views are not available. Study is not adequate for evaluation for intracardiac shunt. CONCLUSIONS: 1. Normal global left ventricular systolic function with an ejection fraction of approximately 60%. 2. Mild aortic valve sclerosis and mitral annular calcification without evidence of significant valvular stenosis. Trivial to mild mitral and tricuspid regurgitation. 3. Pulmonary artery systolic pressure is estimated to be approximately 35 mmHg. Job ID: [id number] Dictated Date: 10/16/2016 18:46:18 Silo Man Date: 10/17/2016 08:28:19 / jono
[2016-10-17] MEDS: inSUlin DETERMIR 1 UNIT/0.01 ML (LEVEMIR) CHARGE PER UNIT SQ SCH ×2 (08:34→20:36)
[2016-10-17] MEDS: FLECAINIDE 100 MG (TAMBOCOR) TAB PO SCH ×2 (08:34→20:35)
[2016-10-17] MEDS: ASPIRIN E.C. 81 MG (ECOTRIN) TAB PO SCH (08:34)
[2016-10-17] MEDS: ESTROGENS CONJ 0.625 MG (PREMARIN) TAB PO SCH (08:34)
[2016-10-17] MEDS: meTOprolol SUCCINATE 100 MG (TOPROL XL) TAB PO SCH (08:34)
[2016-10-17] MEDS: AZITHROMYCIN 250 MG TAB (ZITHROMAX) PO SCH (08:35)
[2016-10-17] MEDS: lisINopril 20 MG (ZESTRIL) TAB PO SCH (08:35)
--- NOTE | 2016-10-17 09:32 | Physician Query ---
PQ-Intro New Diagnosis Admission/Discharge Admission Date: Oct 15, 2016 at 01:27 Discharge Date: The medical record reflects the following clinical scenario: History/Risk Factors: Pneumonia/pulmonary vascular congestion Clinical Findings: Hypoxia with resp 28, pulse 65,pulse ox 87%,tachypnea. Treatment: IV Solu Medrol, O2 flow 2 liter increased to 4 and DuoNeb treatments. Question: What condition best reflects the above clinical scenario? Please document below. 1. Acute respiratory failure. 2. Acute hypoxia only. 3. Other, with explanation of the clinical findings. 4. Clinically undetermined, no explanation for the clinical findings. PHYSICIAN RESPONSE What condition reflects above: Other, explanation/clinical finding Explanation of clincal finding Acute Respiratory Distress with Acute Hypoxia Please remember a lack of response to the above will prompt a phone page by [facility]/ coding staff. In responding to this query, please exercise your independent professional judgment. The purpose of this communication is to more accurately reflect the complexity of your patients condition. The fact that a question is asked does not imply that any particular answer is desired or expected. Thank you for your timely response to this clarification. Requestors name: Tatiana Wagner [facility] Phone # ext [phone] or [phone]. THIS PHYSICIAN QUERY FORM IS A PERMANENT PART OF THE MEDICAL RECORD TATIANA WAGNER Oct 17, 2016 09:32 GEORGIE GONZALES DO Oct 19, 2016 11:05
[2016-10-17 16:25] VITALS: BP 167/91
[2016-10-17] MEDS: warFARin 2 MG (COUMADIN) TAB PO SCH (18:07)
--- NOTE | 2016-10-17 19:16 | Progress Note (SOAP) ---
Subjective Subjective/Events-last exam Fwup hypoxia, pneumonia, pulmonary vascular congestion, HTN, diabetes mellitus. Feels good. Wanted to go home this AM but then had oxygen saturation drop this afternoon to 81%. Objective Exam Vital Signs Date Time Temp Pulse Resp B/P Pulse Ox O2 Delivery O2 Flow Rate FiO2 10/17/16 18:43 95 2.00 10/17/16 16:25 96.5 60 21 167/91 96 Nasal Cannula 2.50 10/17/16 15:23 94 2.00 10/17/16 11:20 88 1.00 10/17/16 08:04 Nasal Cannula 4.00 10/17/16 08:00 97.0 61 16 121/60 92 Nasal Cannula 2.50 10/17/16 06:54 91 1.00 10/17/16 02:15 94 1.00 10/17/16 00:00 98.6 65 20 127/62 94 Nasal Cannula 2.50 10/16/16 22:08 94 2.00 10/16/16 21:00 Nasal Cannula 4.00 I & O 10/17/16 07:00 Intake Total 1800 ml Output Total 1050 ml Balance 750 ml Capillary Refill : Less Than 3 Seconds General Appearance: No Apparent Distress Neck: Supple Respiratory: Crackles Decreased Breath Sounds Rhonci Cardiovascular: Regular Rate, Rhythm Gastrointestinal: normal bowel sounds non tender soft Extremity: Non Tender No Calf Tenderness No Pedal Edema Neurologic/Psychiatric: Alert Oriented x3 Skin: Normal Color Warm/Dry Results Lab Laboratory Tests 10/16/16 20:29: Glucometer 168H 10/17/16 05:36: Glucometer 83 10/17/16 05:52: INR Comment 2.7H, Prothrombin Time 28.6H 10/17/16 09:50: Glucometer 209H 10/17/16 16:27: Glucometer 134H Microbiology 10/14/16 Blood Culture - Preliminary, Resulted No growth 10/14/16 Influenza Types A,B Antigen (BREE) - Final, Complete 10/14/16 Urine Culture - Final, Complete Escherichia Coli Assessment/Plan Assessment/Plan Assess & Plan/Chief Complaint 1. Acute Hypoxia--Continue oxygen 2. Acute Pneumonia--continue IV abx, add solumedrol 3. Acute Pulmonary Vascular Congestion--po lasix dose increased, 2-D ECHO results pending 4. Hypertension--improving 5. Diabetes mellitus--back on levemir with SSI Clinical Quality Measures DVT/VTE Risk/Contraindication: Risk Factor Score Per Nursin RFS Level Per Nursing on Admit: 4+=Very High GEORGIE GONZALES DO Oct 17, 2016 19:16
[2016-10-17] MEDS: methylPREDNISolone 40 MG/ML (Solu-MEDROL) VIAL IV SCH (19:33)
[2016-10-17] MEDS: cefTRIAXone 1 GM/NS 50 ML IVPB IV SCH ×2 (20:35)
[2016-10-17] MEDS: ATORVASTATIN 80 MG (LIPITOR) TABLET PO SCH (20:35)
[2016-10-18] VITALS: BP 170/79
[2016-10-18] MEDS: methylPREDNISolone 40 MG/ML (Solu-MEDROL) VIAL IV SCH ×4 (00:46→17:15)
[2016-10-18] MEDS: RT-ALBUTEROL SULF 2.5 MG/3 ML PRE-MIX VIAL INH SCH ×6 (02:16→22:16)
[2016-10-18] MEDS: FUROSEMIDE 40 MG (LASIX) TAB PO SCH ×2 (05:35→17:15)
[2016-10-18] MEDS: MAGNESIUM OXIDE (MAG-OX)400 MG TAB PO SCH (05:35)
[2016-10-18] MEDS: LEVOTHYROXINE 100 MCG (LEVOTHROID) TAB PO SCH (05:35)
[2016-10-18] MEDS: LEVOTHYROXINE 75 MCG (LEVOTHROID) TABLET PO SCH (05:35)
[2016-10-18] MEDS: CATHETER FLUSH 10 ML SYR IV SCH ×2 (05:35→15:28)
[2016-10-18] MEDS: KCL 20 MEQ TAB (K-DUR) PO SCH (05:35)
[2016-10-18] MEDS: inSUlin (REGULAR) HUMAN 1 UNIT/0.01 ML (CHARGE PER UNIT) SC SCH ×4 (05:36→20:42)
[2016-10-18 07:50] LABS: INR 2.2 (0.8-1.4); PROTHROMBIN TIME PATIENT 24.3 SEC (12.2-14.7)
[2016-10-18 08:00] VITALS: BP 163/69
[2016-10-18] MEDS: AZITHROMYCIN 250 MG TAB (ZITHROMAX) PO SCH (08:43)
[2016-10-18] MEDS: meTOprolol SUCCINATE 100 MG (TOPROL XL) TAB PO SCH (08:43)
[2016-10-18] MEDS: ESTROGENS CONJ 0.625 MG (PREMARIN) TAB PO SCH (08:43)
[2016-10-18] MEDS: ASPIRIN E.C. 81 MG (ECOTRIN) TAB PO SCH (08:43)
[2016-10-18] MEDS: FLECAINIDE 100 MG (TAMBOCOR) TAB PO SCH ×2 (08:44→20:41)
[2016-10-18] MEDS: lisINopril 20 MG (ZESTRIL) TAB PO SCH (08:44)
[2016-10-18] MEDS: inSUlin DETERMIR 1 UNIT/0.01 ML (LEVEMIR) CHARGE PER UNIT SQ SCH ×2 (08:44→20:42)
[2016-10-18 15:25] VITALS: BP 144/65
--- NOTE | 2016-10-18 17:13 | Progress Note (SOAP) ---
Subjective Subjective/Events-last exam Fwup hypoxia, pneumonia, pulmonary vascular congestion, HTN, diabetes mellitus. Had episode with desaturation yesterday so not as eager to go home today. Objective Exam Vital Signs Date Time Temp Pulse Resp B/P Pulse Ox O2 Delivery O2 Flow Rate FiO2 10/18/16 15:25 96.9 60 20 144/65 95 Nasal Cannula 2.00 2.00 10/18/16 15:18 95 2.00 10/18/16 10:46 94 2.00 10/18/16 08:44 Nasal Cannula 2.00 10/18/16 08:00 97.6 63 16 163/69 94 Nasal Cannula 2.00 2.00 10/18/16 07:25 90 2.00 10/18/16 02:17 94 2.00 10/18/16 00:00 98.2 64 18 170/79 95 Nasal Cannula 2.00 2.00 10/17/16 22:39 96 2.00 10/17/16 21:00 Nasal Cannula 2.00 10/17/16 18:43 95 2.00 I & O 10/18/16 07:00 Intake Total 1480 ml Output Total 400 ml Balance 1080 ml Capillary Refill : Less Than 3 Seconds General Appearance: No Apparent Distress Neck: Supple Respiratory: Crackles Decreased Breath Sounds Cardiovascular: Systolic Murmur Gallop/S3 Irregularly Irregular Gastrointestinal: normal bowel sounds non tender soft Extremity: Non Tender No Calf Tenderness No Pedal Edema Neurologic/Psychiatric: Alert Oriented x3 Results Lab Laboratory Tests 10/17/16 20:25: Glucometer 192H 10/18/16 05:24: Glucometer 255H 10/18/16 07:10: INR Comment 2.2H, Prothrombin Time 24.3H 10/18/16 09:03: Glucometer 443*H Microbiology 10/14/16 Blood Culture - Preliminary, Resulted No growth 10/14/16 Influenza Types A,B Antigen (BREE) - Final, Complete 10/14/16 Urine Culture - Final, Complete Escherichia Coli Assessment/Plan Assessment/Plan Assess & Plan/Chief Complaint 1. Acute Hypoxia--Continue oxygen 2. Acute Pneumonia--continue IV abx, continue solumedrol--rhonchi better today 3. Acute Pulmonary Vascular Congestion--po lasix dose increased, 2-D ECHO results discussed with patient and daughter 4. Hypertension--improving 5. Diabetes mellitus--back on levemir with SSI 6. SWING bed evaluation Clinical Quality Measures DVT/VTE Risk/Contraindication: Risk Factor Score Per Nursin RFS Level Per Nursing on Admit: 4+=Very High GEORGIE GONZALES DO Oct 18, 2016 5:13 pm
[2016-10-18] MEDS: warFARin 2 MG (COUMADIN) TAB PO SCH (17:15)
[2016-10-18] MEDS: ATORVASTATIN 80 MG (LIPITOR) TABLET PO SCH (20:41)
[2016-10-18] MEDS: cefTRIAXone 1 GM/NS 50 ML IVPB IV SCH ×2 (20:41)
[2016-10-19] VITALS: BP 162/71
[2016-10-19] MEDS: CATHETER FLUSH 10 ML SYR IV SCH ×2 (00:01→07:46)
[2016-10-19] MEDS: methylPREDNISolone 40 MG/ML (Solu-MEDROL) VIAL IV SCH ×2 (00:01→06:43)
[2016-10-19] MEDS: RT-ALBUTEROL SULF 2.5 MG/3 ML PRE-MIX VIAL INH SCH ×3 (02:21→10:28)
[2016-10-19] MEDS: LEVOTHYROXINE 100 MCG (LEVOTHROID) TAB PO SCH (06:43)
[2016-10-19] MEDS: inSUlin (REGULAR) HUMAN 1 UNIT/0.01 ML (CHARGE PER UNIT) SC SCH (06:43)
[2016-10-19] MEDS: KCL 20 MEQ TAB (K-DUR) PO SCH (06:44)
[2016-10-19] MEDS: MAGNESIUM OXIDE (MAG-OX)400 MG TAB PO SCH (06:44)
[2016-10-19] MEDS: LEVOTHYROXINE 75 MCG (LEVOTHROID) TABLET PO SCH (06:44)
[2016-10-19] MEDS: FUROSEMIDE 40 MG (LASIX) TAB PO SCH (06:44)
[2016-10-19 07:05] LABS: INR 2.5 (0.8-1.4); PROTHROMBIN TIME PATIENT 26.5 SEC (12.2-14.7)
[2016-10-19 08:00] VITALS: BP 161/67
[2016-10-19] MEDS: meTOprolol SUCCINATE 100 MG (TOPROL XL) TAB PO SCH (09:13)
[2016-10-19] MEDS: FLECAINIDE 100 MG (TAMBOCOR) TAB PO SCH (09:13)
[2016-10-19] MEDS: ASPIRIN E.C. 81 MG (ECOTRIN) TAB PO SCH (09:13)
[2016-10-19] MEDS: lisINopril 20 MG (ZESTRIL) TAB PO SCH (09:14)
[2016-10-19] MEDS: inSUlin DETERMIR 1 UNIT/0.01 ML (LEVEMIR) CHARGE PER UNIT SQ SCH (09:14)
[2016-10-19] MEDS: ESTROGENS CONJ 0.625 MG (PREMARIN) TAB PO SCH (09:42)
--- NOTE | 2016-10-19 11:12 | Discharge Summary ---
Diagnosis/Chief Complaint Date of Admission Oct 15, 2016 at 01:27 Date of Discharge Oct 19, 2016 at 10:49 Discharge Date: Oct 19, 2016 Admission Diagnosis Admission Diagnosis 1. Acute Hypoxia--admit on oxygen 2. Pulmonary Vascular Congestion--start lasix and check BNP, 2-D ECHO 3. Possible RLL infiltrate vs nodule--on abx but will check CT of chest 4. Hypertensive Urgency--restart home meds and monitor 5. Diabetes mellitus--resume home insulin dose plus SSI Discharge Diagnosis 1. Acute Hypoxia with Acute Respiratory Distress--improving 2. Acute Bilateral Pneumonia--improving 3. Pulmonary Vascular Congestion with ECHO showing normal EF--improving 4. Hypertensive Urgency--improved 5. Diabetes mellitus--insulin requiring--with hyperglycemia due to steroids 6. Hypothyroidism 7. History of Atrial Fibrillation--stable Reason Hospital Visit This is a 81 year old female who presented to the emergency room with a 3 day history of cough and congestion. She became more short of air so she presented to the emergency room. She was found to be hypoxic with an oxygen saturation of 87%. She was also found to be hypertensive. Her CXR showed a pulmonary vascular congestion and possible right lower lobe pneumonia. It was decided to admit her for antibiotics, oxygen, nebulizer treatments and further evaluation. Discharge Summary Hospital Course Hospital Course This is a 81 year old female who presented to the emergency room with a 3 day history of cough and congestion. She became more short of air so she presented to the emergency room. She was found to be hypoxic with an oxygen saturation of 87%. She was also found to be hypertensive. Her CXR showed a pulmonary vascular congestion and possible right lower lobe pneumonia. It was decided to admit her for antibiotics, oxygen, nebulizer treatments and further evaluation. She was admitted to the medical floor on oxygen, rocephin, zithromax and nebulizer treatments. A CT scan of the chest was done to further delineate the right lower lobe nodule vs infiltrate. This showed bilateral ground glass appearance, pulmonary vascular congestion and old granulomatous disease. She was continued on her antibiotics and her lasix dose was increased. A 2-D ECHO was performed and showed a preserved EF of 60%. She continue to have rhonchi and rales so IV solumedrol was added as well. The addition of the IV solumedrol did elevate her blood sugar so her levemir dose and sliding scale insulin dose were both increased. She was still requiring oxygen and still had bilateral crackles and rales so it was felt that she would benefit from longer IV antibiotics, oxygen, SVNs and slower weaning of IV solumedrol so a SWING bed evaluation was obtained. She will be transferred to SWING bed to continue the above as well as start PT and OT. Labs Laboratory Tests 10/16/16 13:55: B-Type Natriuretic Peptide 187.0H 10/16/16 14:41: Glucometer 180H 10/16/16 15:10: INR Comment 3.1H, Prothrombin Time 32.0H 10/16/16 20:29: Glucometer 168H 10/17/16 05:36: 10/17/16 05:52: INR Comment 2.7H, Prothrombin Time 28.6H 10/17/16 09:50: Glucometer 209H 10/17/16 16:27: Glucometer 134H 10/17/16 20:25: Glucometer 192H 10/18/16 05:24: Glucometer 255H 10/18/16 07:10: INR Comment 2.2H, Prothrombin Time 24.3H 10/18/16 09:03: Glucometer 443*H 10/18/16 14:58: Glucometer 418*H 10/18/16 19:49: Glucometer 433*H 10/19/16 05:55: INR Comment 2.5H, Prothrombin Time 26.5H Procedures None. Discharge Physical Examination Allergies: Coded Allergies: No Known Drug Allergies (Unverified , 06/05/15) Vitals & I&Os Vital Signs Date Time Temp Pulse Resp B/P Pulse Ox O2 Delivery O2 Flow Rate FiO2 10/19/16 10:29 97 1.50 10/19/16 09:00 Nasal Cannula 10/19/16 08:00 97.6 60 20 161/67 General Appearance: Alert, Oriented X3 Respiratory: Other (bilateral crackles and rhonchi) Cardiovascular: Regular Rate Abdominal: Normal Bowel Sounds, Soft, No Tenderness Extremities: No Clubbing, No Cyanosis, No Edema Skin: No Rashes Psych/Mental Status: Mental Status NL, Mood NL Discharge Home Medications Reviewed and agree with Discharge Medication list on patient's Discharge Instruction sheet Instructions to Patient/Family Please see electonic discharge instructions given to patient. Clinical Quality Measures DVT/VTE Risk/Contraindication: Risk Factor Score Per Nursin RFS Level Per Nursing on Admit: 4+=Very High GEORGIE GONZALES DO Oct 19, 2016 11:12
--- NOTE | 2016-10-30 10:52 | Physician Query ---
PQ-Intro New Diagnosis Admission/Discharge Admission Date: Oct 15, 2016 at 01:27 Discharge Date: Oct 19, 2016 at 10:49 The medical record reflects the following clinical scenario: History/Risk Factors: Urinary frequency and urgency per nurses notes. Clinical Findings: Admission urine culture final results->100,000/ML E coli and < 10,000/Mixed gram positive kennedy. Treatment: IV Rocephin, Azithromycin 250mg Question: What condition best reflects the above clinical scenario? Please document below. 1. UTI due to E coli. 2. Urinary frequency and urgency without UTI. 3. Other, with explanation of the clinical findings. 4. Clinically undetermined, no explanation for the clinical findings. PHYSICIAN RESPONSE What condition reflects above: 1 Please remember a lack of response to the above will prompt a phone page by CDI/ coding staff. In responding to this query, please exercise your independent professional judgment. The purpose of this communication is to more accurately reflect the complexity of your patients condition. The fact that a question is asked does not imply that any particular answer is desired or expected. Thank you for your timely response to this clarification. Requestors name: Tatiana Wagner [facility] Phone # ext [phone] or [phone] THIS PHYSICIAN QUERY FORM IS A PERMANENT PART OF THE MEDICAL RECORD TATIANA WAGNER Oct 30, 2016 10:52 GEORGIE GONZALES DO Nov 07, 2016 19:16
== END 2016-10-19 10:49 | disposition swing bed (61) | DRG 194 ==
LOC: EDUNIT# 22:31 → ER 22:36 → 4TH 10-15 01:27
PROVIDERS: ADMIT Family Medicine; ATTEND Family Medicine
DX: J18.9 Pneumonia, unspecified organism (principal); R09.02 Hypoxemia; R06.00 Dyspnea, unspecified; I16.0 Hypertensive urgency; N39.0 Urinary tract infection, site not specified; B96.20 Unspecified Escherichia coli [E. coli] as the cause of diseases classified elsewhere; R09.89 Other specified symptoms and signs involving the circulatory and respiratory systems; R19.7 Diarrhea, unspecified; E11.65 Type 2 diabetes mellitus with hyperglycemia; I48.91 Unspecified atrial fibrillation; E78.00 Pure hypercholesterolemia, unspecified; I69.311 Memory deficit following cerebral infarction; R35.0 Frequency of micturition; R39.15 Urgency of urination; K21.9 Gastro-esophageal reflux disease without esophagitis; M81.0 Age-related osteoporosis without current pathological fracture; M19.91 Primary osteoarthritis, unspecified site; E03.9 Hypothyroidism, unspecified; H91.90 Unspecified hearing loss, unspecified ear; Z79.4 Long term (current) use of insulin; Z79.84 Long term (current) use of oral hypoglycemic drugs; Z79.01 Long term (current) use of anticoagulants; T38.0X5A Adverse effect of glucocorticoids and synthetic analogues, initial encounter
CPT/HCPCS: 36415; 71010; 71250; 80053; 81000; 82962; 83605; 83880; 85007; 85025; 85027; 85610; 85730; 87040; 87088; 87186; 87804; 93306; 94640; 94760; 96365

== ENCOUNTER 2016-10-19 08:17 | Inpatient (IN) | payer MEDICARE, BC ==
[~2016-10-19] VITALS: Ht 165.1 cm; Wt 89.4 kg
[~2016-10-19 08:17] MED LIST changes: +ASPI-983 PO; +ATOR80TA76 PO; +ESTR0.62 PO; +INSU100I29 SQ; +LEVO175T5 PO; +MAGN400T6 PO; +NF-MET200T PO; +WARF-47 PO
[2016-10-19] MEDS ORDERED: RT-ALBUTEROL SULF 2.5 MG/3 ML PRE-MIX VIAL INH PRN (11:00)
[2016-10-19] MEDS ORDERED: ACETAMINOPHEN 500 MG TAB (TYLENOL) PO PRN (11:00)
--- OUTSIDE RECORDS SUMMARY | 2016-10-19 11:16 | XMS REPORT | Continuity of Care Document ---
Author Author [facility] Organization [facility] Address Unknown Phone Unavailable Care Team Providers Care Flute Grinder Name Role Phone Dpth, Azucena PCP [phone] Source Comments Some departments are not documenting in the electronic medical record. If you do not see the information that you expected, contact Release of Information in the Health Information Management department at [phone] for further assistance in locating additional records.[facility] Active Allergies and Adverse Reactions Allergen [...] improves her overall clinical status. --followed by project leader --AFIB stable Pulmonary hypertension (HCC) 01/01/2011 Overview: [...]
[2016-10-19] MEDS: inSUlin (REGULAR) HUMAN 1 UNIT/0.01 ML (CHARGE PER UNIT) SC SCH ×3 (13:01→21:07)
--- NOTE | 2016-10-19 13:50 | Physical Therapy Evaluation ---
PT Evaluation-General Medical Diagnosis Admission Date Oct 19, 2016 at 11:01 Medical Diagnosis: pneumonia Onset Date: Oct 14, 2016 Therapy Diagnosis Therapy Diagnosis: debility Height/Weight Height (Feet): 5 Height (Inches): 5.00 Weight (Pounds): 197 Weight (Ounces): 3.0 Referral Physician: Alex Reason for Referral: Evaluation/Treatment Medical History Pertinent Medical History: Atrial Fib, CVA, DM, Heart Failure, HTN, Hypothroidism Additional Medical History 3 day history of a cough and congestion; hypoxia 87% RA Current History SWB status Reviewed History: Yes Social History Home: Assisted Living Current Living Status: Alone Entry Into Home: Level Entry Prior/Core FIM Prior Level of Function Functional [place] Measure 0=Not Assessed/NA 4=Minimal Assistance 1=Total Assistance 5=Supervision or Setup 2=Maximal Assistance 6=Modified [place] 3=Moderate Assistance 7=Complete [place] Bed Mobility: 7 Transfers (B,C,W/C) (FIM): 7 Gait: 7 Locomotion: 7 PT Evaluation-Current Subjective Patient and daughter agrees to PT. No c/o at this time. Pain Numeric Pain Scale: 0-No Pain Location: No Pain Reported Objective Patient Orientation: Person, Time, Situation Problem Solving: Fair Attachments: Oxygen ROM/Strength ROM Lower Extremities bilateral LE WFL Strenght Lower Extremities bilateral LE WFL Integumentary/Posture Integumentary refer to nursing notes Bowel Incontinence: No Bladder Incontinence: No Posture WNL Neuromuscular (Tone, Coordination, Reflexes) grossly intact Sensory Vision: Functional Hearing: Functional Sensation Right Lower Extremit: Impaired Sensation Left Lower Extremity: Impaired Transfers Functional [place] Measure 0=Not Assessed/NA 4=Minimal Assistance 1=Total Assistance 5=Supervision or Setup 2=Maximal Assistance 6=Modified [place] 3=Moderate Assistance 7=Complete [place] Transfers (B, C, W/C) (FIM): 7 Scootin Rollin Supine to/from Sit: 7 Sit to/from Stand: 7 Sit to Lying (QC): 6 Lying to Sitting/Side of Bed(Q: 6 Sit to Stand (QC): 6 Chair/Iyt-dv-Irggw Xfer(QC): 6 safely independent with gross motor skills Gait Does the Patient Walk?: Yes Mode of Locomotion: Walk Anticipated Mode of Locomotion: Walk Gait (FIM): 7 Distance (FIM): 3=150 ft Distance: 800' Walk 50 ft with 2 Turns(QC): 6 Walk 150 ft (QC): 6 Gait Level of Assist: 7 Gait Assistive Device: None Comments/Gait Description safe and functional Balance Sitting Static: Normal Sitting Dynamic: Normal Standing Static: Normal Standing Dynamic: Normal Treatment Patient ambulated on RA with SAO2 87% with no visible signs of SOA or distress. Education with patient and family on importance of ambulating PRN in hallway to ensure safe return to home at independent [facility]. Assessment/Needs 81 y.o. female, is currently at independent [facility] and does not require skilled PT intervention. Patient and family have been up in hallway PRN prior to this evaluation. Rehab Potential: Good PT Plan Treatment/Plan Treatment Plan: Discontinue PT Pt/Family Agrees w/Plan: Yes Safety Risks/Education Patient Education: Safety Issues Teaching Recipient: Patient, Family Teaching Methods: Discussion Response to Teaching: Verbalize Understanding Discharge Recommendations Therapy D/C Recommendations: Home w/ Family Support, Home Independently Time/GCodes Time In: 1250 Time Out: 1315 Total Billed Treatment Time: 25 Total Billed Treatment 1 visit EVLowC 10 min FA 15 min RAYO HAYNES PT Oct 19, 2016 13:50
[2016-10-19] MEDS: RT-ALBUTEROL SULF 2.5 MG/3 ML PRE-MIX VIAL INH SCH ×3 (14:25→21:15)
[2016-10-19] MEDS: CATHETER FLUSH 10 ML SYR IV SCH ×2 (14:58→21:08)
--- NOTE | 2016-10-19 15:29 | Occupational Therapy Eval ---
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 Reviewed History: Yes Social History Home: Assisted Living ([facility]) Current Living Status: Alone Entry Into Home: Level Entry ADL-Prior Level of Function ADL PLOF Comments Pt and daughter reported that pt was modified independent with all of her basic self care needs. She lives iin an outside apartment and walks to the main building daily for lunch. She still drives and enjoyed golfing until she had too much trouble with her knees. DME/Equipment: Grab Bars, Shower, Tall Toilet DME/Equipment Comments Accessible bathroom Occupation: retired from [employer] Self: Yes OT Current Status Subjective Pt seen in room, up in bed, agreeable to OT. Pain reported 0/10. Appearance Alert, cooperative Mental Status/Objective Patient Orientation: Person, Place, Situation Attachments: Oxygen Current Hand Dominance: Right Upper Extremity ROM Grossly WFL. L UE lags behind R at shoulder only. Arthritic changes inhands Upper Extremity Sensation Pt reported no problems Upper Extremity Strength grossly 5/5 bilat (no weakness L UE) ADL-Treatment ADL-Current Pt took oxygen off and walked without AD to bathroom to toilet, groom with no LOB Functional [place] Measure 0=Not Assessed/NA 4=Minimal Assistance 1=Total Assistance 5=Supervision or Setup 2=Maximal Assistance 6=Modified [place] 3=Moderate Assistance 7=Complete IndependenceIRFPAI Quality Coding Scale 6 Independent with activity with or without an assistive device 5 Patient requires set up or clean up by helper. Patient completes activity by themselves 4 Supervision or touching assist (CGA). [place] provide cues , steadying assist 3 The helper provides less than half the effort to complete the activity 2 The helper provides more than half the effort to complete the activity 1 Dependent. The helper does all the effort to complete an activity 7 Patient refused to complete or attempt activity 9 The patient did not perform the activity before the current illness or injury 88 Not attempted due to Medical conditions or safety concerns Eating (FIM): 6 (Pt report) Eating (QC): 6 Grooming (FIM): 6 (At sink) Oral Hygiene (QC): 6 Bathing (FIM): 6 (Pt reported she did a sponge bath on her own this morning. ) Upper Body Dressing (FIM): 6 (Pt reported she dressed herself this morning) Lower Body Dressing (FIM): 6 (Pt report she dressed herself this AM. Pt was able to doff and don slipper socks sitting EOB. ) Toileting (FIM): 6 (Tall toilet, grab bar Manage clothing and hygiene) Toileting Hygiene (QC): 6 Transfers (B, C, W/C) (FIM): 6 (No AD) Toilet/Commode Transfer (FIM): 6 (Tall toilet, grab bar) Toilet Transfer (QC): 6 Education OT Patient Education: Progress toward Goal/Update tx plan, Purpose of tx/ functional activities, Rehab process Teaching Recipient: Patient, Family Teaching Methods: Discussion Response to Teaching: Return Demonstration OT Education/Plan Problem List/Assessment Assessment: No Skilled OT Needs ID'd Pt does not have any skilled self care or strength needs. DC OT Discharge Recommendations Plan/Recommendations: Discontinue OT Target Placement Return to [facility] Treatment Plan/Plan of Care DC OT Rehab Potential: Good Time/GCodes Start Time: 13:50 Stop Time: 14:15 Total Time Billed (hr/min): 25 Billed Treatment Time visit, 25 minutes low intensity evaluation FLORIAN SPARKS OT Oct 19, 2016 15:29 FLORIAN SPARKS OT Oct 19, 2016 15:29
[2016-10-19] MEDS: FUROSEMIDE 40 MG (LASIX) TAB PO SCH (17:13)
[2016-10-19] MEDS: warFARin 2 MG (COUMADIN) TAB PO SCH (17:13)
[2016-10-19] MEDS: methylPREDNISolone 40 MG/ML (Solu-MEDROL) VIAL IV SCH (21:06)
[2016-10-19] MEDS: inSUlin DETERMIR 1 UNIT/0.01 ML (LEVEMIR) CHARGE PER UNIT SQ SCH (21:07)
[2016-10-19] MEDS: FLECAINIDE 100 MG (TAMBOCOR) TAB PO SCH (21:07)
[2016-10-19] MEDS: ATORVASTATIN 80 MG (LIPITOR) TABLET PO SCH (21:07)
[2016-10-19] MEDS: cefTRIAXone INJECTION 1,000 MG in NS (IVPB) 50 ML IV SCH (21:07)
[2016-10-20] MEDS: RT-ALBUTEROL SULF 2.5 MG/3 ML PRE-MIX VIAL INH SCH ×5 (02:31→18:35)
[2016-10-20 04:29] VITALS: BP 148/66
[2016-10-20 04:47] LABS: INR 2.6 (0.8-1.4); PROTHROMBIN TIME PATIENT 27.9 SEC (12.2-14.7)
[2016-10-20] MEDS: FUROSEMIDE 40 MG (LASIX) TAB PO SCH ×2 (06:09→17:03)
[2016-10-20] MEDS: LEVOTHYROXINE 75 MCG (LEVOTHROID) TABLET PO SCH (06:09)
[2016-10-20] MEDS: KCL 20 MEQ TAB (K-DUR) PO SCH (06:09)
[2016-10-20] MEDS: LEVOTHYROXINE 100 MCG (LEVOTHROID) TAB PO SCH (06:09)
[2016-10-20] MEDS: MAGNESIUM OXIDE (MAG-OX)400 MG TAB PO SCH (06:10)
[2016-10-20] MEDS: inSUlin (REGULAR) HUMAN 1 UNIT/0.01 ML (CHARGE PER UNIT) SC SCH ×4 (06:10→20:36)
[2016-10-20] MEDS: CATHETER FLUSH 10 ML SYR IV SCH ×3 (06:11→20:36)
[2016-10-20] MEDS: meTOprolol SUCCINATE 100 MG (TOPROL XL) TAB PO SCH (09:54)
[2016-10-20] MEDS: methylPREDNISolone 40 MG/ML (Solu-MEDROL) VIAL IV SCH ×2 (09:54→20:35)
[2016-10-20] MEDS: inSUlin DETERMIR 1 UNIT/0.01 ML (LEVEMIR) CHARGE PER UNIT SQ SCH ×2 (09:54→20:36)
[2016-10-20] MEDS: ASPIRIN E.C. 81 MG (ECOTRIN) TAB PO SCH (09:54)
[2016-10-20] MEDS: lisINopril 20 MG (ZESTRIL) TAB PO SCH (09:54)
[2016-10-20] MEDS: FLECAINIDE 100 MG (TAMBOCOR) TAB PO SCH ×2 (09:54→20:35)
[2016-10-20] MEDS: ESTROGENS CONJ 0.625 MG (PREMARIN) TAB PO SCH (09:55)
[2016-10-20] MEDS: warFARin 2 MG (COUMADIN) TAB PO SCH (17:03)
[2016-10-20 18:00] VITALS: BP 138/65
[2016-10-20] MEDS: cefTRIAXone INJECTION 1,000 MG in NS (IVPB) 50 ML IV SCH (20:35)
[2016-10-20] MEDS: ATORVASTATIN 80 MG (LIPITOR) TABLET PO SCH (20:35)
[2016-10-21 05:50] LABS: INR 2.7 (0.8-1.4); PROTHROMBIN TIME PATIENT 28.7 SEC (12.2-14.7)
[2016-10-21 06:00] VITALS: BP 179/89
[2016-10-21] MEDS: inSUlin (REGULAR) HUMAN 1 UNIT/0.01 ML (CHARGE PER UNIT) SC SCH ×4 (06:00→22:06)
[2016-10-21] MEDS: CATHETER FLUSH 10 ML SYR IV SCH ×3 (06:20→22:05)
[2016-10-21] MEDS: KCL 20 MEQ TAB (K-DUR) PO SCH (06:20)
[2016-10-21] MEDS: MAGNESIUM OXIDE (MAG-OX)400 MG TAB PO SCH (06:20)
[2016-10-21] MEDS: LEVOTHYROXINE 100 MCG (LEVOTHROID) TAB PO SCH (06:20)
[2016-10-21] MEDS: FUROSEMIDE 40 MG (LASIX) TAB PO SCH ×2 (06:20→17:10)
[2016-10-21] MEDS: LEVOTHYROXINE 75 MCG (LEVOTHROID) TABLET PO SCH (06:20)
[2016-10-21] MEDS: RT-ALBUTEROL SULF 2.5 MG/3 ML PRE-MIX VIAL INH SCH ×3 (07:07→19:35)
[2016-10-21] MEDS: meTOprolol SUCCINATE 100 MG (TOPROL XL) TAB PO SCH (08:57)
[2016-10-21] MEDS: methylPREDNISolone 40 MG/ML (Solu-MEDROL) VIAL IV SCH ×2 (08:57→22:05)
[2016-10-21] MEDS: lisINopril 20 MG (ZESTRIL) TAB PO SCH (08:57)
[2016-10-21] MEDS: FLECAINIDE 100 MG (TAMBOCOR) TAB PO SCH ×2 (08:57→22:05)
[2016-10-21] MEDS: ASPIRIN E.C. 81 MG (ECOTRIN) TAB PO SCH (08:57)
[2016-10-21] MEDS: CATHETER FLUSH 10 ML SYR IV PRN (08:59)
[2016-10-21] MEDS: ESTROGENS CONJ 0.625 MG (PREMARIN) TAB PO SCH (09:07)
[2016-10-21] MEDS: inSUlin DETERMIR 1 UNIT/0.01 ML (LEVEMIR) CHARGE PER UNIT SQ SCH ×2 (09:08→22:06)
[2016-10-21] MEDS: warFARin 2 MG (COUMADIN) TAB PO SCH (17:10)
[2016-10-21 18:19] VITALS: BP 147/69
[2016-10-21] MEDS: ATORVASTATIN 80 MG (LIPITOR) TABLET PO SCH (22:05)
[2016-10-21] MEDS: cefTRIAXone INJECTION 1,000 MG in NS (IVPB) 50 ML IV SCH (22:05)
[2016-10-22 05:55] VITALS: BP 174/77
[2016-10-22] MEDS: KCL 20 MEQ TAB (K-DUR) PO SCH (06:14)
[2016-10-22] MEDS: MAGNESIUM OXIDE (MAG-OX)400 MG TAB PO SCH (06:14)
[2016-10-22] MEDS: LEVOTHYROXINE 75 MCG (LEVOTHROID) TABLET PO SCH (06:14)
[2016-10-22] MEDS: CATHETER FLUSH 10 ML SYR IV SCH ×2 (06:14→14:10)
[2016-10-22] MEDS: LEVOTHYROXINE 100 MCG (LEVOTHROID) TAB PO SCH (06:14)
[2016-10-22] MEDS: inSUlin (REGULAR) HUMAN 1 UNIT/0.01 ML (CHARGE PER UNIT) SC SCH ×2 (06:14→11:59)
[2016-10-22] MEDS: FUROSEMIDE 40 MG (LASIX) TAB PO SCH (06:14)
[2016-10-22 06:34] LABS: PROTHROMBIN TIME PATIENT 30.7 SEC (12.2-14.7)
[2016-10-22] MEDS: RT-ALBUTEROL SULF 2.5 MG/3 ML PRE-MIX VIAL INH SCH ×2 (07:10→14:03)
[2016-10-22] MEDS: CATHETER FLUSH 10 ML SYR IV PRN (08:47)
[2016-10-22] MEDS: inSUlin DETERMIR 1 UNIT/0.01 ML (LEVEMIR) CHARGE PER UNIT SQ SCH (08:47)
[2016-10-22] MEDS: ESTROGENS CONJ 0.625 MG (PREMARIN) TAB PO SCH (08:48)
[2016-10-22] MEDS: lisINopril 20 MG (ZESTRIL) TAB PO SCH (08:48)
[2016-10-22] MEDS: methylPREDNISolone 40 MG/ML (Solu-MEDROL) VIAL IV SCH (08:48)
[2016-10-22] MEDS: ASPIRIN E.C. 81 MG (ECOTRIN) TAB PO SCH (08:48)
[2016-10-22] MEDS: FLECAINIDE 100 MG (TAMBOCOR) TAB PO SCH (08:48)
[2016-10-22] MEDS: meTOprolol SUCCINATE 100 MG (TOPROL XL) TAB PO SCH (08:48)
[2016-10-22] MEDS ORDERED: PRD20T PO (14:11)
[2016-10-22] MEDS ORDERED: DOXY100C2 PO (14:11)
--- NOTE | 2016-10-22 14:14 | Discharge Inst-Simple/Standard ---
Discharge Inst-Standard Discharge Medications New, Converted or Re-Newed RX: Transmitted to Pharmacy Patient Instructions/Follow Up Plan of Care/Instructions/FU: Fwup with me on , 10/25/16 Activity as Tolerated: Yes Discharge Diet: ADA Diet, Cardiac Diet Other Inst to Patient PT/INR on , 10/25/16 Home oxygen at 1.5L GEORGIE MCCOY DO Oct 22, 2016 2:14 pm
[2016-10-22 15:00] VITALS: BP 174/77
--- NOTE | 2016-11-07 19:15 | Discharge Summary ---
Diagnosis/Chief Complaint Date of Admission Oct 19, 2016 at 11:01 Date of Discharge Oct 22, 2016 at 15:00 Discharge Date: Oct 22, 2016 Admission Diagnosis Admission Diagnosis 1. Acute Hypoxia with Acute Respiratory Distress--improving 2. Acute Bilateral Pneumonia--improving 3. Pulmonary Vascular Congestion with ECHO showing normal EF--improving 4. Hypertensive Urgency--improved 5. Diabetes mellitus--insulin requiring--with hyperglycemia due to steroids 6. Hypothyroidism 7. History of Atrial Fibrillation--stable Discharge Diagnosis 1. Acute Hypoxia with Acute Respiratory Distress--improving 2. Acute Bilateral Pneumonia--improving 3. Pulmonary Vascular Congestion with ECHO showing normal EF--improving 4. Hypertensive Urgency--improved 5. Diabetes mellitus--insulin requiring--with hyperglycemia due to steroids, improving with decrease in steroids 6. Hypothyroidism 7. History of Atrial Fibrillation--stable Discharge Summary Hospital Course Hospital Course This is a 81 year old female initially admitted to acute care with pneumonia with hypoxia. She also had pulmonary vascular congestion requiring diuresis with IV lasix. She continued to require oxygen so it was decided to transfer her to SWING bed to continue antibiotics, diuresis and wean her solumedrol. She was transferred to SWING bed and continued on IV antibiotics, oxygen and SVNs with duoneb. She was started on PT and OT and was up ambulating with PT with a walker with no shortness of air. She was afebrile with a normal WBC count. She still had bilateral rales but her rhonchi and wheezing were improved so her IV solumedrol was weaned. Her blood sugars improved with weaning of her IV solumedrol. She continued to require oxygen so a respiratory evaluation was done for oxygen qualification and the patient did qualify for oxygen for discharge. She will be discharged home on oral antibiotics with oral prednisone taper, oxygen and SVNs with albuterol. She will have home PT/ OT and nursing. Her daughters will be staying with her on discharge. Procedures None. Discharge Physical Examination Allergies: Coded Allergies: No Known Drug Allergies (Unverified , 06/05/15) General Appearance: Alert, Oriented X3, Cooperative, No Acute Distress Respiratory: Other (bilateral rales) Cardiovascular: Regular Rate Extremities: No Clubbing, No Cyanosis, No Edema Neuro: Normal Gait Psych/Mental Status: Mental Status NL, Mood NL Discharge Home Medications Reviewed and agree with Discharge Medication list on patient's Discharge Instruction sheet Instructions to Patient/Family Please see electonic discharge instructions given to patient. GEORGIE GONZALES DO Nov 07, 2016 19:15
== END 2016-10-22 15:00 | DRG 195 ==
LOC: 4TH 11:01
PROVIDERS: ADMIT Family Medicine; ATTEND Family Medicine
DX: J18.9 Pneumonia, unspecified organism (principal); E11.65 Type 2 diabetes mellitus with hyperglycemia; E78.00 Pure hypercholesterolemia, unspecified; I69.311 Memory deficit following cerebral infarction; K21.9 Gastro-esophageal reflux disease without esophagitis; M81.0 Age-related osteoporosis without current pathological fracture; M19.91 Primary osteoarthritis, unspecified site; E03.9 Hypothyroidism, unspecified; H91.90 Unspecified hearing loss, unspecified ear; Z79.4 Long term (current) use of insulin; Z79.84 Long term (current) use of oral hypoglycemic drugs
CPT/HCPCS: 36415; 82962; 85610; 94640; 94760

== ENCOUNTER → 2017-03-26 | Outpatient (CLI) | payer MEDICARE, BC ==
[~2017-03-26] MED LIST changes: +DOXY100C2 PO; +PRD20T PO
--- NOTE | 2017-03-26 17:07 | Diagnostic Imaging Report ---
EXAMINATION: PA and lateral chest at 04:10 p.m. INDICATION: Productive cough. FINDINGS: The heart size is within normal limits and both the heart and the central pulmonary vascularity do seem less prominent than noted on the prior exam. The left-sided pacemaker seen previously is again evident and no different. The small calcified granuloma in the right lung base seen on the prior study is unchanged as well. The lungs are generally clear. There is no evidence for failure, pneumonia, or for a pleural effusion. The mediastinum is not widened. The osseous structures are intact. IMPRESSION: The mild cardiomegaly and pulmonary congestion noted on the prior exam have resolved. There is no acute cardiopulmonary abnormality identified at this time. Dictated by: Dictated on workstation # [id number]
== END ==
LOC: RAD 15:30
PROVIDERS: ATTEND Family Medicine
DX: R05 Cough (principal); R50.9 Fever, unspecified
CPT/HCPCS: 71020

== ENCOUNTER → 2017-04-12 | Outpatient (CLI) | payer MEDICARE, BC ==
--- NOTE | 2017-04-12 14:20 | Diagnostic Imaging Report ---
INDICATION: Cough x5 weeks. COMPARISON: 03/26/2017. FINDINGS: PA and lateral views show the lungs to be well-aerated. There are calcified granuloma noted bilaterally. There are no infiltrates. No masses have developed. The heart is in upper limits of normal. There is no pulmonary edema. No hilar adenopathy. No pneumothorax or pleural effusion. No bony abnormalities. IMPRESSION: Mild cardiac enlargement with no evidence of congestive failure or pneumonia. Dictated by: Dictated on workstation # [id number]
== END ==
LOC: RAD 11:43
PROVIDERS: ATTEND Family Medicine
DX: R05 Cough (principal)
CPT/HCPCS: 71020

== ENCOUNTER → 2017-05-02 | Outpatient (CLI) | payer MEDICARE, BC ==
--- NOTE | 2017-05-02 12:44 | Diagnostic Imaging Report ---
PROCEDURE: US Carotid Duplex Bilateral. TECHNIQUE: Multiple real-time grayscale images were obtained over the carotid arteries in various projections bilaterally. Additional duplex Doppler and color Doppler images were also obtained. INDICATION: Frequent falls. FINDINGS: Grayscale images demonstrate mild plaque along the carotid bifurcation more prominent on the left. Color Doppler demonstrates patency of the common, internal and external carotid arteries on both sides. There is antegrade flow in the vertebral arteries. Peak systolic velocities in the right ICA are 75, 100, and 106 cm/s and on the left 59, 90, and 110 cm/s. ICA/CCA ratio are up to 1.6 on the right and up to 1.3 on the left. IMPRESSION: There is mild increased internal carotid artery velocities with underlying stenosis in the range of 25 to 50% bilaterally. Dictated by: Dictated on workstation # [id number]
--- NOTE | 2017-05-02 13:28 | Diagnostic Imaging Report ---
PROCEDURE: CT head and neck without contrast. TECHNIQUE: Contiguous axial images were obtained from the skull base through the vertex. Noncontrast axial images were then obtained of the soft tissue of the neck. INDICATION: Fall. FINDINGS: CT head: No intracranial hemorrhage. There are periventricular and deep white matter hypodensities compatible with chronic microvascular ischemic changes. No hydrocephalus. No extra-axial fluid collection is seen. The calvarium, the paranasal sinuses, and orbits appear grossly unremarkable. CT neck: The parotid and submandibular glands appear symmetric. The thyroid gland is absent. Correlate with surgical history. There is no hematoma or significantly enlarged lymph node seen in the cervical chain. The mucosal pharyngeal space appears unremarkable. The lung apices appear unremarkable. The osseous structures demonstrate minimal anterior translation of C7 over T1 vertebra. The alignment of the facet joints is satisfactory. No widening of the predental space. Satisfactory alignment of the lateral masses of C1 and C2 and the atlantooccipital joints is seen. There is significant facet arthropathy and uncovertebral joint arthropathy resulting in severe foramina stenosis on the right at C3/4, and severe foraminal stenosis bilaterally at C4/5, worse on the left and moderate foraminal stenosis on the right at C6/7 and severe on the left. No fracture is seen. There is osseous fusion of the facet joints bilaterally at C2/3 level and osseous bridging along the intervertebral space of C2/3. IMPRESSION: CT head: No intracranial hemorrhage. White matter findings compatible with chronic microvascular ischemic changes. CT neck: Advanced degenerative changes in the cervical spine. No acute process. Dictated by: Dictated on workstation # [id number]
== END ==
LOC: RAD 11:40
PROVIDERS: ATTEND Family Medicine
DX: M47.812 Spondylosis without myelopathy or radiculopathy, cervical region; I65.23 Occlusion and stenosis of bilateral carotid arteries; Z86.73 Personal history of transient ischemic attack (TIA), and cerebral infarction without residual deficits
CPT/HCPCS: 70450; 70490; 93880

== ENCOUNTER → 2017-12-24 | Outpatient (CLI) | payer MEDICARE, BC ==
[~2017-12-24] MED LIST changes: +ACHD5005 PO; -HYDR-3812 PO
--- NOTE | 2017-12-24 10:54 | Diagnostic Imaging Report ---
INDICATION: Multiple falls, chest pain COMPARISON: 04/12/2017 FINDINGS: frontal and lateral views the chest and straight stable Carta enlargement. Stable granulomas in the right base. There is no pneumothorax or effusion. No obvious rib fracture seen. The visualized thoracic spine is normal. Pacemaker is intact and is unchanged. IMPRESSION: Stable cardiac enlargement without pulmonary edema or infiltrate. No pneumothorax or effusion. Dictated by: Dictated on workstation # [id number]
== END ==
LOC: RAD 09:10
PROVIDERS: ATTEND Family Medicine
DX: I51.7 Cardiomegaly (principal); W19.XXXA Unspecified fall, initial encounter
CPT/HCPCS: 71046

== ENCOUNTER 2018-01-09 11:15 | Outpatient (RCR) | payer MEDICARE, BC | END 2018-01-09 12:05 | disposition home or self-care (01) | PROVIDERS: ATTEND Family Medicine | DX: M54.2 Cervicalgia (principal) ==

== ENCOUNTER 2018-03-05 09:21 | Emergency (ER) | payer MEDICARE, BC ==
[~2018-03-05] VITALS: Ht 167.6 cm; Wt 80.7 kg
--- OUTSIDE RECORDS SUMMARY | 2018-03-05 09:26 | XMS REPORT | Clinical Summary ---
Author Author [facility] Organization [facility] Address Unknown Phone Unavailable Care Team Providers Care Backbreaker Name Role Phone Dpth, Banner Zeng PCP Source Comments Some departments are not documenting in the electronic medical record. If you do not see the information that you expected, contact Release of Information in the Health Information Management department at [phone] for further assistance in locating additional records.[facility] Allergies Active Allergy Reactions Severity Noted Date Comments Sulfa (Sulfonamide HIVES 12/13/2009 Antibiotics) Current Medications Prescription Sig. Disp. Refills [...] daily. 180 Tab 3 01/02/20 Active mg tabletIndications: 13 A-fib (HCC) amLODIPine (NORVASC) 5 mg Take 1 Tab [...] improves her overall clinical status. --followed by four roll calender operator --AFIB stable Pulmonary hypertension (HCC) 01/01/2011 Overview: [...] presented with Chest pain w elevated tropinin 02-17 a. 02/17 Cardiac cath revealed mild disease of 20% LAD lesion. b. No clear WMA's noted. Normal LV Function b. EF 60% by cath 02/17. No clear WMA's noted.when presented with Chest pain w elevated tropinin 02-17 a. 02/17 Cardiac cath revealed mild disease [...] rate as regular rhythm and normal rate. Family History Relation Name Status Comments Father Mother Social History Tobacco Use Types Packs/Day Years Used Date Never Smoker Alcohol Use Drinks/Week oz/Week Comments No Sex Assigned at Date Recorded Not on file Last Filed Vital Signs Vital Sign Reading Time Taken Blood Pressure 138/72 01/13/2013 10:45 AM CDT Pulse 60 01/01/2013 12:44 PM CDT Temperature 36.4 C (97.5 F) 12/13/2009 3:45 PM CDT Respiratory Rate - - Oxygen Saturation 96% 12/13/2009 3:45 PM CDT Inhaled Oxygen - - Concentration Weight 89.4 kg (197 lb) 01/13/2013 10:45 AM CDT Height 166.4 cm (5' 5.5") 01/13/2013 10:45 AM CDT Body Mass Index 32.28 01/13/2013 10:45 AM CDT Plan of Treatment Health Maintenance Due Date Last Done Comments PHYSICAL (COMPREHENSIVE) 1944 EXAM PERTUSSIS VACCINE 1948 TETANUS VACCINE 1954 SHINGLES RECOMBINANT 1987 VACCINE (1 of 2) OSTEOPOROSIS SCREENING 2002 PNEUMONIA (PCV13/PPSV23) 2002 VACCINES (1 of 2 - PCV13) INFLUENZA VACCINE 05/12/2018 Results Not on filefrom Last 3 Months
--- NOTE | 2018-03-05 10:32 | ED Fall/Injury ---
General Chief Complaint: Trauma-Non Activation Stated Complaint: FALL/HEAD INJ Nursing Triage Note: PT TO ROOM #6 [facility]IA [facility] A&OX4. PT REPORTS SHE FELL THIS MORNING AND HIT HER HEAD WHILE WALKING WITH HER WALKER. DENIES LOC. DENIES NECK PAIN. DENIES DIZZINESS. FACILITY REPORTS THIS IS HER 3RD FALL SINCE SATURDAY AND IF FINISHING BACTRIM FOR RECENT UTI. PT REPORTS PAIN IN THE BACK OF HER HEAD. GOOSE EGG NOTED TO DORSAL SIDE OF HEAD. PUPILS 2MM PERRLA. PT IS TAKING COUMADIN. Source: patient, EMS Exam Limitations: no limitations History of Present Illness Date Seen by Provider: Mar 05, 2018 Time Seen by Provider: 09:28 Initial Comments The patient presents to the ER by EMS with chief complaint at [facility] where she is living she has had her third fall in the last 3 days. She fell backwards striking the back of her head and has a knot on the back of her head according to nursing report. She is not bleeding. She did not get knocked out and she has no nausea or vomiting. She says she is being treated with Bactrim for an UTI. Staff sent over a copy of the sensitivity demonstrating the bacteria is susceptible to Bactrim. The patient has 1 more day of antibiotics to go. Patient does not know why she fell. She's not having any fevers, sweats, nausea, vomiting, diarrhea, constipation. Appetite is normal. She is on Coumadin. Location Injury Occurred: [facility] Allergies and Home Medications Allergies Coded Allergies: No Known Drug Allergies (Unverified , 06/05/15) Home Medications Aspirin 81 Mg Tablet.dr, 81 MG PO DAILY, (Reported) Atorvastatin Calcium 80 Mg Tablet, 80 MG PO HS, (Reported) Doxycycline Hyclate 100 Mg Capsule, 100 MG PO BID Prescribed by: GEORGIE GONZALES on 10/22/16 1411 Flecainide Acetate 100 Mg Tablet, 100 MG PO BID, (Reported) Furosemide 40 Mg Tablet, 40 MG PO DAILY, (Reported) Insulin Detemir 100 Unit/1 Ml Insuln.pen, 35 UNITS SQ BID, (Reported) Levothyroxine Sodium 175 Mcg Tablet, 175 MCG PO DAILY, (Reported) Lisinopril 40 Mg Tablet, 40 MG PO DAILY, (Reported) Magnesium Oxide 400 Mg Tablet, 400 MG PO DAILY, (Reported) Metoprolol Succinate 200 Mg Tab, 200 MG PO DAILY, (Reported) Potassium Chloride 10 Meq Capsule.er, 10 MEQ PO DAILY, (Reported) Prednisone 20 Mg Tab, 20 MG PO BID Prescribed by: GEORGIE GONZALES on 10/22/16 1411 Warfarin Sodium 2 Mg Tablet, 2 MG PO TuThSa, (Reported) Warfarin Sodium 2 Mg Tablet, 3 MG PO SuMoWeFr, (Reported) TAKES 1 & 1/2 OF A (2 MG) TABLET Patient Home Medication List Home Medication List Reviewed: Yes Review of Systems Constitutional: No diaphoresis, No dizziness, No fever, No malaise, No weakness Eyes: Denies Blindness, Denies Blurred Vision, Denies Drainage Ears, Nose, Mouth, Throat: denies ear pain, denies ear discharge, denies nose pain, denies nose discharge Respiratory: No cough, No short of breath Cardiovascular: No chest pain, No palpitations Gastrointestinal: No abdominal pain, No constipation, No diarrhea, No nausea, No vomiting Genitourinary: No discharge, No dysuria Musculoskeletal: No back pain, No joint pain Past Nmfghgp-Iausiu-Mvxovh Hx Patient Social History Alcohol Use: Denies Use Recreational Drug Use: No Smoking Status: Never a Smoker 2nd Hand Smoke Exposure: No Recent Foreign Travel: No Contact w/Someone Who Travel: No Recent Infectious Disease Expo: No Recent Hopitalizations: No Physical Abuse: No Sexual Abuse: No Immunizations Up To Date Tetanus Booster (TDap): Unknown Date of Influenza Vaccine: May 17, 2016 Seasonal Allergies Seasonal Allergies: No Past Medical History Surgeries: Yes (APPY,HYSTERECTOMY, THYROID,T&A) Appendectomy, Eye Surgery, Hysterectomy, Pacemaker, Tonsillectomy Respiratory: No Currently Using CPAP: No Currently Using BIPAP: No Cardiac: Yes (PACEMAKER) High Cholesterol, Hypertension Neurological: Yes (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) Stroke Reproductive Disorders: No Female Reproductive Disorders: Endometriosis Sexually Transmitted Disease: No HIV/AIDS: No Genitourinary: Yes (stress incontinence) Gastrointestinal: Yes Gastroesophageal Reflux Musculoskeletal: Yes Osteoporosis, Arthritis Endocrine: Yes Hypothyroidsim, Diabetes, Non-Insulin dep Cataract Loss of Vision: Denies Hearing Impairment: Deaf Cancer: No Psychosocial: No Nursing Suicide Risk Score: 0 Integumentary: No Blood Disorders: No Family Medical History No Pertinent Family Hx Physical Exam Vital Signs Vital Signs - First Documented Capillary Refill : Less Than 3 Seconds Height, Weight, BMI Height: 5'6.00" Weight: 178lbs. 3.0oz. 80.064312yc; 32.8 BMI Method:Stated General Appearance: WD/WN, no apparent distress HEENT: PERRL/EOMI, normal ENT inspection, TMs normal, pharynx normal, other ( negative for raccoon eyes, Alejandro sign, hemotympanum; hematoma right occiput) Neck: non-tender, full range of motion, supple, normal inspection Cardiovascular: normal peripheral pulses, regular rate, rhythm Respiratory: chest non-tender, lungs clear, normal breath sounds, no respiratory distress, no accessory muscle use Gastrointestinal: normal bowel sounds, non tender, soft Pelvic: other (stable nontender to palpation externally) Back: normal inspection, no vertebral tenderness Extremities: normal range of motion, non-tender, normal inspection, no pedal edema, no calf tenderness Neurologic/Psychiatric: research librarian II-XII nml as tested, no motor/sensory deficits, alert, normal mood/affect, other (oriented to person and place) Skin: normal color, warm/dry [place] Coma Score Best Eye Response: (4) Open Spontaneously Best Verbal Response: (5) Oriented Best Motor Response: (6) Obeys Commands Kevin Total: 15 Progress/Results/Core Measures Results/Orders Lab Results Laboratory Tests Test 03/05/18 10:49 Range/Units My Orders Orders - TODD GARCIA Ct Head/Cervical Spine Wo (03/05/18 09:52) Ua Culture If Indicated (03/05/18 09:52) Acetaminophen Tablet (Tylenol Tablet) (03/05/18 10:45) Vital Signs/I&O 03/05/18 03/05/18 09:22 09:22 Temp 97.6 97.6 Pulse 67 67 Resp 18 18 B/P (MAP) 166/85 (112) 166/85 (112) Pulse Ox 94 94 O2 Delivery Room Air Room Air Blood Pressure Mean: 112 Progress Progress Note : Time: 10:32 Progress Note Ice to the head and CT of the head and neck without contrast. We'll offer her some Tylenol. Diagnostic Imaging Diagonstic Imaging: CT Plain Films/CT/US/NM/MRI: c-spine, head Comments NAME: LUIS TAMEZ MED REC#: [id number] PT STATUS: REG ER : 1935 PHYSICIAN: TODD GARCIA MD ADMIT DATE: 03/05/18/ER Draft Date of Exam:03/05/18 CT HEAD/CERVICAL SPINE WO PROCEDURE: CT head and CT cervical spine without contrast. TECHNIQUE: Multiple contiguous axial images were obtained through the brain and cervical spine without the use of intravenous contrast. Sagittal and coronal reformations through the cervical spine were then performed. INDICATION: Fall. Head injury. COMPARISON: CT head and neck without contrast 05/02/2017. FINDINGS: CT HEAD: Advanced generalized cerebral and cerebellar parenchymal volume loss. Advanced leukoaraiosis. No CT evidence of territorial infarction. No intracranial hemorrhage, mass effect, hydrocephalus or extra-axial fluid collections. Intracranial vascular calcifications. The paranasal sinuses and mastoids are clear. Osseous structures are intact. Scalp contusion overlying the right parietal convexity. CT CERVICAL SPINE: Normal alignment. Vertebral body heights are preserved. No acute fractures. Moderate degenerative endplate changes. No evidence of high-grade spinal canal narrowing on this noncontrast exam. Scattered moderate neural foraminal narrowing including on the right at C3-C4, on the left at C4-C5, C5-C6. Partially visualized cardiac pacer wires. Moderate atherosclerotic calcifications including the carotid bifurcations. The visualized paravertebral soft tissues are otherwise unremarkable. IMPRESSION: 1. Scalp contusion overlying the right parietal convexity. No calvarial fractures. 2. No acute intracranial or cervical spine CT findings. Dictated on workstation # [id number] Dict: 03/05/18 1052 Trans: 03/05/18 1101 [id number] Interpreted by: YUSUF MURRAY MD Electronically signed by: Reviewed: Reviewed by Me Departure Impression Primary Impression: Fall Qualified Codes: W19.XXXA - Unspecified fall, initial encounter Additional Impressions: Hematoma of right parietal scalp Qualified Codes: S00.03XA - Contusion of scalp, initial encounter UTI (urinary tract infection) Qualified Codes: N30.00 - Acute cystitis without hematuria Disposition: 01 HOME, SELF-CARE Condition: Stable Departure-Patient Inst. Decision time for Depature: 11:12 Referrals: GEORGIE GONZALES DO (PCP/Family) Primary Care Physician Patient Instructions: Preventing Falls in the Older Adult Add. Discharge Instructions: Tylenol 1000 mg every 8 hours and ice pack to the back of the head as needed for the next few days. All discharge instructions reviewed with patient and/or family. Voiced understanding. Copy Copies To 1: GEORGIE GONZALES TITUS J Mar 05, 2018 10:32
[2018-03-05] MEDS ORDERED: ACETAMINOPHEN 500 MG TAB (TYLENOL) PO ONE (10:45)
[2018-03-05 10:56] LABS: BILIRUBIN,URINE NEGATIVE (NEGATIVE); CLARITY,URINE CLEAR; COLOR,URINE YELLOW; GLUCOSE, URINE (UA) NEGATIVE (NEGATIVE); KETONES,URINE NEGATIVE (NEGATIVE); LEUKOCYTE ESTERASE ,URINE 1+ (NEGATIVE); NITRITE,URINE NEGATIVE (NEGATIVE); PH,URINE 6.5 (5-9); PROTEIN,URINE NEGATIVE (NEGATIVE); UROBILINOGEN,URINE NORMAL (NORMAL)
--- NOTE | 2018-03-05 11:01 | Diagnostic Imaging Report ---
PROCEDURE: CT head and CT cervical spine without contrast. TECHNIQUE: Multiple contiguous axial images were obtained through the brain and cervical spine without the use of intravenous contrast. Sagittal and coronal reformations through the cervical spine were then performed. INDICATION: Fall. Head injury. COMPARISON: CT head and neck without contrast 05/02/2017. FINDINGS: CT HEAD: Advanced generalized cerebral and cerebellar parenchymal volume loss. Advanced leukoaraiosis. No CT evidence of territorial infarction. No intracranial hemorrhage, mass effect, hydrocephalus or extra-axial fluid collections. Intracranial vascular calcifications. The paranasal sinuses and mastoids are clear. Osseous structures are intact. Scalp contusion overlying the right parietal convexity. CT CERVICAL SPINE: Normal alignment. Vertebral body heights are preserved. No acute fractures. Moderate degenerative endplate changes. No evidence of high-grade spinal canal narrowing on this noncontrast exam. Scattered moderate neural foraminal narrowing including on the right at C3-C4, on the left at C4-C5, C5-C6. Partially visualized cardiac pacer wires. Moderate atherosclerotic calcifications including the carotid bifurcations. The visualized paravertebral soft tissues are otherwise unremarkable. IMPRESSION: 1. Scalp contusion overlying the right parietal convexity. No calvarial fractures. 2. No acute intracranial or cervical spine CT findings. Dictated by: Dictated on workstation # [id number]
[2018-03-05 11:08] LABS: BACTERIA,URINE TRACE /HPF; WBC,URINE 0-2 /HPF
[2018-03-05 11:40] VITALS: BP 164/75
== END 2018-03-05 11:45 | disposition home or self-care (01) ==
LOC: EDUNIT# 09:21 → ER 09:23
DX: S00.83XA Contusion of other part of head, initial encounter (principal); N39.0 Urinary tract infection, site not specified; E78.00 Pure hypercholesterolemia, unspecified; R40.2142 Coma scale, eyes open, spontaneous, at arrival to emergency department; R40.2252 Coma scale, best verbal response, oriented, at arrival to emergency department; R40.2362 Coma scale, best motor response, obeys commands, at arrival to emergency department; I10 Essential (primary) hypertension; E03.9 Hypothyroidism, unspecified; E11.9 Type 2 diabetes mellitus without complications; M81.0 Age-related osteoporosis without current pathological fracture; Z86.73 Personal history of transient ischemic attack (TIA), and cerebral infarction without residual deficits; Z79.82 Long term (current) use of aspirin; Z79.4 Long term (current) use of insulin; Z79.01 Long term (current) use of anticoagulants; Z95.0 Presence of cardiac pacemaker; Z90.89 Acquired absence of other organs; Z90.710 Acquired absence of both cervix and uterus; W01.198A Fall on same level from slipping, tripping and stumbling with subsequent striking against other object, initial encounter
CPT/HCPCS: 70450; 72125; 81000

== ENCOUNTER 2018-03-06 13:51 | Observation (INO) | payer MEDICARE, BC ==
[~2018-03-06] VITALS: Ht 167.6 cm; Wt 88.5 kg
[2018-03-06 14:10] VITALS: BP 179/79
[2018-03-06] MEDS ORDERED: ACETAMINOPHEN 325 MG TABLET PO PRN (14:30)
[2018-03-06] MEDS ORDERED: inSUlin ASPART (NovoLOG) 1 UNIT/0.01 ML (CHARGE PER UNIT) SC SCH (14:30)
[2018-03-06] MEDS ORDERED: PATIENT MAY USE OWN MEDS, ALL PO SCH (14:30)
[2018-03-06 15:11] LABS: BASOPHILS # (AUTO) 0.1 10^3/uL (0.0-0.1); BASOPHILS % (AUTO) 0 % (0-10); EOSINOPHILS # (AUTO) 0.4 10^3/uL (0.0-0.3); EOSINOPHILS % (AUTO) 3 % (0-10); HEMATOCRIT 37 % (35-52); HEMOGLOBIN 12.1 G/DL (11.5-16.0); LYMPHOCYTES # (AUTO) 1.3 X 10^3 (1.0-4.0); LYMPHOCYTES % (AUTO) 9 % (12-44); MEAN CORPUSCULAR HEMOGLOBIN 29 PG (25-34); MEAN CORPUSCULAR HGB CONC 33 G/DL (32-36); MEAN CORPUSCULAR VOLUME 87 FL (80-99); MEAN PLATELET VOLUME 11.7 FL (7.4-10.4); MONOCYTES # (AUTO) 1.1 X 10^3 (0.0-1.0); MONOCYTES % (AUTO) 8 % (0-12); NEUTROPHILS # (AUTO) 11.4 X 10^3 (1.8-7.8); NEUTROPHILS % (AUTO) 80 % (42-75); PLATELET COUNT 252 10^3/uL (130-400); RED CELL DISTRIBUTION WIDTH 16.5 % (10.0-14.5); WHITE BLOOD COUNT 14.3 10^3/uL (4.3-11.0)
[2018-03-06 15:32] LABS: BAND NEUTROPHILS 0 %; BASOPHILS % (MANUAL) 2 %; EOSINOPHILS % (MANUAL) 3 %; LYMPHOCYTES % (MANUAL) 9 %; MONOCYTES % (MANUAL) 9 %; NEUTROPHILS % (MANUAL) 77 %
[2018-03-06 15:33] LABS: RBC MORPH NORMAL
[2018-03-06 15:42] LABS: ALBUMIN 3.8 GM/DL (3.2-4.5); BILIRUBIN,TOTAL 0.3 MG/DL (0.1-1.0); CALCIUM 9.4 MG/DL (8.5-10.1); CREATININE SERUM 1.32 MG/DL (0.60-1.30); POTASSIUM 4.8 MMOL/L (3.6-5.0); TOTAL PROTEIN 7.1 GM/DL (6.4-8.2)
[2018-03-06 15:51] VITALS: BP 178/85
[2018-03-06 15:51] LABS: INR 6.1 (0.8-1.4); PROTHROMBIN TIME PATIENT 54.8 SEC (12.2-14.7)
[2018-03-06 16:45] VITALS: BP 202/81
--- NOTE | 2018-03-06 16:58 | Diagnostic Imaging Report ---
CLINICAL INDICATION: Patient fell on cement floor. Patient has fell several times in a few days. Patient has knot on back of head that is bleeding. Patient is very unstable on standing. EXAM: Axial CT scan of the brain performed without IV contrast. COMPARISON: CT scan of the head performed without IV contrast dated 03/05/2018. FINDINGS: There is interval development of a mixed-density acute right subdural hematoma which measures 3.1 cm in transverse dimensions. There is also a fluid-fluid/hematocrit level seen within these right subdural hematoma. There is also development of hyperdense subdural blood along the falx cerebri which measures up to 1.1 cm. There is also interval development of a small amount of subdural blood along the right tentorium. There is interval development of 1.1 cm of vamhs-xw-fbhe midline shift with subfalcine herniation and right uncal herniation. There is encroachment upon the right lateral ventricle seen. There is no intraventricular blood. There is no hydrocephalus. Again seen focal and patchy areas of low-attenuation white matter changes involving both cerebral hemispheres, likely representing chronic small vessel ischemic disease and leukoaraiosis. Stable chronic cerebral infarct involving the right frontal lobe. Diffuse brain parenchymal volume loss again seen. There is interval increased size of extracranial soft tissue swelling and hematoma involving the posterior aspect of the head. There is no skull fracture. The remainder of the extracranial soft tissue shows no other significant abnormality. There is mild mucosal thickening involving the right maxillary sinus. Temporal bone structures show no significant abnormality. IMPRESSION: 1: Interval development of a large acute right subdural hematoma which causes 11 mm of kvddy-fv-fudl midline shift, subfalcine herniation, and right uncal herniation. 2: There is interval development of acute subdural blood along the falx cerebri and right tentorium. 3: There is asymmetry of the ventricles due to encroachment upon the right lateral ventricle. There is no hydrocephalus seen on this exam. 4: Increased size of the extracranial swelling/hematoma in the posterior aspect of the head. There is no skull fracture. 5: Chronic small vessel ischemic disease of the brain parenchyma and right frontal lobe cerebral infarct. Results of this report were discussed with Dr. Zhanna Johnson via the telephone on 03/06/2018 at 1640 hours. Dictated by: Dictated on workstation # [id number]
[2018-03-06] MEDS ORDERED: LORazepam INJ 2 MG/ML (ATIVAN) VIAL ONE (17:01)
[2018-03-06] MEDS ORDERED: GLYCOPYRROLATE 0.2 MG/ML (ROBINUL) 2 ML VIAL IV PRN (17:15)
[2018-03-06] MEDS ORDERED: PROMETHAZINE INJ 25 MG/ML (PHENERGAN) AMP IVP PRN (17:15)
[2018-03-06] MEDS ORDERED: BISACODYL 10 MG SUPP (DULCOLAX) PR PRN (17:15)
[2018-03-06] MEDS ORDERED: LORazepam INJ 2 MG/ML (ATIVAN) VIAL IVP PRN ×2 (17:15→17:30)
[2018-03-06] MEDS ORDERED: RT-ALBUTEROL/IPRATROPIUM 3 ML (DUONEB) VIAL INH PRN (17:15)
[2018-03-06] MEDS ORDERED: ARTIFICIAL TEARS OINT (LACRI-LUBE) 3.5 GM TUBE OU PRN (17:15)
[2018-03-06] MEDS ORDERED: ONDANSETRON 4 MG/2 ML (SDV) Z0FRAN IVP PRN (17:15)
[2018-03-06] MEDS ORDERED: ARTIFICAL TEARS 0.4 ML UNIT DOSE (REFRESH PLUS) OU PRN (17:15)
[2018-03-06] MEDS ORDERED: ACETAMINOPHEN 650 MG SUPP (TYLENOL) PR PRN (17:15)
[2018-03-06] MEDS ORDERED: LORazepam INJ 2 MG/ML (ATIVAN) VIAL IVP ONE (17:15)
[2018-03-06] MEDS ORDERED: SALIVA STIMULANT MOUTH SPRAY (BIOTENE) 1.5 OZ MM PRN (17:15)
--- NOTE | 2018-03-06 17:18 | History & Physicial ---
History of Present Illness History of Present Illness Reason for visit/HPI This is an 82 year old female with known dementia and recent repeated falls who was evaluated yesterday for a fall at the emergency room. Her CT of her head was negative at that time but she was worked in today at my office for followup. She got out of the car on her own at my office despite her daughter telling her not to, and got the wheels of her walker caught stuck and fell backwards striking her head. She was sent for a direct admit. She was in CT scan for a brain CT and was joking with staff and family when she had a sudden change in her mental status. I was called shortly after this by radiology from [place] and was told she had a new subdural hematoma causing a midline shift. The family wishes comfort care at this time. Date of Admission Mar 06, 2018 at 14:01 Date Seen by Provider: Mar 06, 2018 Time Seen by Provider: 17:23 I consulted on this patient on 03/06/18 17:13 Attending Physician Zhanna Johnson DO Admitting Physician Zhanna Johnson DO Consult Allergies and Home Medications Allergies Coded Allergies: No Known Drug Allergies (Unverified , 06/05/15) Home Medications Aspirin 81 Mg Tablet.dr, 81 MG PO DAILY, (Reported) Atorvastatin Calcium 80 Mg Tablet, 80 MG PO HS, (Reported) Doxycycline Hyclate 100 Mg Capsule, 100 MG PO BID Prescribed by: ZHANNA JOHNSON on 10/22/16 1411 Flecainide Acetate 100 Mg Tablet, 100 MG PO BID, (Reported) Furosemide 40 Mg Tablet, 40 MG PO DAILY, (Reported) Insulin Detemir 100 Unit/1 Ml Insuln.pen, 35 UNITS SQ BID, (Reported) Levothyroxine Sodium 175 Mcg Tablet, 175 MCG PO DAILY, (Reported) Lisinopril 40 Mg Tablet, 40 MG PO DAILY, (Reported) Magnesium Oxide 400 Mg Tablet, 400 MG PO DAILY, (Reported) Metoprolol Succinate 200 Mg Tab, 200 MG PO DAILY, (Reported) Potassium Chloride 10 Meq Capsule.er, 10 MEQ PO DAILY, (Reported) Prednisone 20 Mg Tab, 20 MG PO BID Prescribed by: ZHANNA JOHNSON on 10/22/16 1411 Warfarin Sodium 2 Mg Tablet, [facility], ([facility]) Warfarin Sodium 2 Mg Tablet, 3 MG PO SuMoWeFr, (Reported) TAKES 1 & 1/2 OF A (2 MG) TABLET Patient Home Medication List Home Medication List Reviewed: Yes Past Nzrhhyy-Dzjbxj-Jvpsee Hx Patient Social History Alcohol Use: Denies Use Recreational Drug Use: No Smoking Status: Never a Smoker 2nd Hand Smoke Exposure: No Physical Abuse Screen: No Sexual Abuse: No Recent Foreign Travel: No Contact w/other who traveled: No Recent Hopitalizations: No Recent Infectious Disease Expo: No Immunizations Up To Date Tetanus Booster (TDap): Unknown Date of Influenza Vaccine: May 17, 2016 Seasonal Allergies Seasonal Allergies: No Surgeries Yes (APPY,HYSTERECTOMY, THYROID,T&A) Appendectomy, Eye Surgery, Hysterectomy, Pacemaker, Tonsillectomy Respiratory No Currently Using CPAP: No Currently Using BIPAP: No Cardiovascular Yes (PACEMAKER) High Cholesterol, Hypertension Neurological Yes (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) Stroke Reproductive System Hx Reproductive Disorders: No Sexually Transmitted Disease: No HIV/AIDS: No Female Reproductive Disorders: Endometriosis Genitourinary Yes (stress incontinence) UTI-Chronic Gastrointestinal Yes Gastroesophageal Reflux Musculoskeletal Yes Osteoporosis, Arthritis Endocrine History of Endocrine Disorders: Yes Endocrine Disorders: Hypothyroidsim, Diabetes, Non-Insulin dep Are Your Blood Sugars Over 250: No HEENT History of HEENT Disorders: Yes HEENT Disorders: Cataract Loss of Vision: Denies Hearing Impairment: Deaf Cancer No Psychosocial History of Psychiatric Problem: No Integumentary History of Skin or Integumenta: Yes Skin/Integumentary Disorders: Recent Skin Changes Blood Transfusions History of Blood Disorders: No Family Medical History Significant Family History: No Pertinent Family Hx Constitutional: weakness EENTM: No see HPI, No no symptoms reported, No ear discharge, No hearing loss, No ear pain, No blurred vision, No double vision, No eye pain, No tearing, No vision loss, No dental problems, No hoarseness, No mouth pain, No mouth swelling , No epistaxis, No nose congestion, No nose pain, No throat pain, No throat swelling, No other Respiratory: other (respiratory pauses since mental status change) Cardiovascular: No no symptoms reported, No see HPI, No chest pain, No edema, No Hx of Intervention, No palpitations, No syncope, No vascular heart diseas, No other Gastrointestinal: No RUQ, No LUQ, No RLQ, No LLQ, No no symptoms reported, No see HPI, No abdominal pain, No constipation, No diarrhea, No dysphagia, No hematemesis, No heartburn, No jaundice, No loss of appetite, No melena, No nausea, No vomiting, No other Genitourinary: No no symptoms reported, No see HPI, No decreased output, No discharge, No dysuria, No frequency, No hematuria, No hesitancy, No incontinence , No nocturia, No pain, No other Musculoskeletal: muscle twitching (right arm), muscle weakness Skin: other (numerous hematomas of arms/legs and posterior scalp) Psychiatric/Neurological: Paresthesia (not using left side), Other (acute mental status change--currently unresponsive) Physical Exam Vital Signs Vital Signs - First Documented 03/06/18 14:10 Temp 97.7 Pulse 61 Resp 20 B/P (MAP) 179/79 (112) Pulse Ox 95 O2 Delivery Room Air Capillary Refill : Height, Weight, BMI Height: 5'6.00" Weight: 195lbs. 1.0oz. 88.100625po; 31.5 BMI Method:Stated General Appearance: Moderate Distress HEENT: Other (unequal pupils) Neck: Supple Respiratory: Lungs Clear Cardiovascular: Regular Rate, Rhythm Gastrointestinal: Normal Bowel Sounds, Soft Rectal: Deferred Extremity: Non Tender, No Calf Tenderness, No Pedal Edema Neurologic/Psychiatric: Sensory Deficit (acute unresponsiveness ) Skin: Ecchymosis (scattered hematomas of arms/legs and posterior scalp) Assessment/Plan Assessment and Plan 1. Acute Subdural Hematoma with midline shift--comfort care per patient and family wishes Admission Diagnosis Admission Status: Observation Clinical Quality Measures DVT/VTE Risk/Contraindication: Risk Factor Score Per Nursin RFS Level Per Nursing on Admit: 3=High ZHANNA JOHNSON DO Mar 06, 2018 17:18
--- NOTE | 2018-03-06 17:21 | Diagnostic Imaging Report ---
CLINICAL INDICATION: Patient with mental status change. EXAM: Axial CT scan of the brain performed without IV contrast. COMPARISON: CT scan of the brain performed without IV contrast dated 03/06/2018 at 1554 hours. FINDINGS: There is interval increased size of the mixed-density acute large right subdural hematoma which now measures 3.6 cm in greatest width at the same level compared to the prior study which previously measured 3.1 cm. There is development of fluid-fluid levels/hematocrit levels seen anteriorly and in the larger collection region. There is also increased density within the larger fluid-fluid level, consistent with active hemorrhage. There is progression of cqrpj-gg-acqg midline shift which is now 1.2 cm. There is stable hyperdense blood along the falx cerebri measuring roughly 1.1 cm. There is also stable minimal hyperdense subdural blood along the right tentorium. There is progression of mass effect upon the right lateral ventricle with continued development of ventricular trapping of the left lateral ventricle. There is subfalcine herniation and right uncal herniation seen. The extracranial soft tissue swelling/hematoma involving the posterior aspect of the head is again seen. There is no skull fracture. The remainder of this exam shows no significant interval change compared to the prior study of comparison. IMPRESSION: 1: Interval increased size of the large acute right subdural hematoma with increased size and number of the fluid-fluid/hematocrit levels, consistent with active bleeding. There is progression of mdfok-kx-lifr midline shift with increased left lateral ventricular trapping. 2: Stable subdural blood along the falx cerebri and right tentorium. 3: The remainder of this exam shows no significant interval change compared to the prior study of comparison. Results of this report were discussed with Dr. Zhanna Johnson via the telephone on 03/06/2018 at 1710 hours. Dictated by: Dictated on workstation # [id number]
[2018-03-06] MEDS: morphine INJ 4 MG/ML 1 ML (VIAL/SYRINGE) IV PRN ×2 (18:30→20:40)
[2018-03-06] MEDS ORDERED: morphine INJ 4 MG/ML 1 ML (VIAL/SYRINGE) IV PRN (21:15)
--- NOTE | 2018-03-27 20:48 | Discharge Summary ---
Diagnosis/Chief Complaint Date of Admission Mar 06, 2018 at 14:10 Date of Discharge Mar 06, 2018 at 23:14 Discharge Diagnosis 1. Acute Subdural Hematoma with midline shift causing demise 2. Dementia 3. Multiple Falls Reason Hospital Visit This is an 82 year old female with known dementia and recent repeated falls who was evaluated yesterday for a fall at the emergency room. Her CT of her head was negative at that time but she was worked in today at my office for followup. She got out of the car on her own at my office despite her daughter telling her not to, and got the wheels of her walker caught stuck and fell backwards striking her head. She was sent for a direct admit. She was in CT scan for a brain CT and was joking with staff and family when she had a sudden change in her mental status. I was called shortly after this by radiology from [place] and was told she had a new subdural hematoma causing a midline shift. The family wishes comfort care at this time. Discharge Summary Hospital Course Hospital Course This is an 82 year old female with known dementia and recent repeated falls who was evaluated the day prior to admission for a fall at the emergency room. Her CT of her head was negative at that time but she was worked in the day of admission at my office for followup. She got out of the car on her own at my office despite her daughter telling her not to, and got the wheels of her walker stuck and fell backwards striking her head. She was sent for a direct admit. She was in CT scan for a brain CT and was joking with staff and family when she had a sudden change in her mental status. I was called shortly after this by radiology from [place] and was told she had a new subdural hematoma causing a midline shift. The family opted for comfort care per the patient's wishes. She was placed on comfort care and never regained consciousness. Her was pronounced at 23:14 by nursing. Procedures None. Discharge Physical Examination Allergies: Coded Allergies: No Known Drug Allergies (Unverified , 06/05/15) General Appearance: Other (unresponsive) Discharge Home Medications Reviewed and agree with Discharge Medication list on patient's Discharge Instruction sheet Instructions to Patient/Family Please see electronic discharge instructions given to patient. Clinical Quality Measures DVT/VTE Risk/Contraindication: Risk Factor Score Per Nursin RFS Level Per Nursing on Admit: 3=High ORENDER,GEORGIE S DO Mar 27, 2018 20:48
== END 2018-03-06 23:14 | disposition expired ==
LOC: 4TH 14:01 → UNDOADMIN 14:01 → 4TH 14:10 → EDSTATUS 15:48 → UNDODISIN 03-07 00:28
PROVIDERS: ADMIT Family Medicine; ATTEND Family Medicine
DX: S06.5X0A Traumatic subdural hemorrhage without loss of consciousness, initial encounter (principal); Z51.5 Encounter for palliative care; Z66 Do not resuscitate; Z79.01 Long term (current) use of anticoagulants; F03.90 Unspecified dementia, unspecified severity, without behavioral disturbance, psychotic disturbance, mood disturbance, and anxiety; E11.9 Type 2 diabetes mellitus without complications; E03.9 Hypothyroidism, unspecified; I10 Essential (primary) hypertension; I69.311 Memory deficit following cerebral infarction; E78.00 Pure hypercholesterolemia, unspecified; K21.9 Gastro-esophageal reflux disease without esophagitis; M81.0 Age-related osteoporosis without current pathological fracture; Z79.4 Long term (current) use of insulin; W19.XXXA Unspecified fall, initial encounter; Y92.481 Parking lot as the place of occurrence of the external cause
CPT/HCPCS: 36415; 70450; 72125; 80053; 81000; 82962; 84443; 85007; 85027; 85610; 99211; G0378